=== PATIENT | female | born 1950 | race Caucasian/White ===

== ENCOUNTER → 2017-04-28 | Outpatient (CLI) | payer MEDICARE ==
--- NOTE | 2017-04-29 21:54 | BD ---
EXAMINATION TYPE: MG DEXA axial skeleton. DATE OF EXAM: 04/28/2017 COMPARISON: NONE CLINICAL HISTORY: Height: 61.5 IN Weight: 179 LBS FRAX RISK QUESTIONS: Alcohol (3 or more units per day): NO Family History (Parent hip fracture): NO Glucocorticoids (More than 3mos): NO (Ex: prednisone, prednisolone, methylprednisolone, dexamethasone, and hydrocortisone). History of Fracture in Adulthood: YES RT FOOT AGE 63 Secondary Osteoporosis: 1. Type 1 Diabetes: NO 2. Hyperthyroidism: NO 3. Menopause before 45: NO 4. Malnutrition: NO 5. Chronic liver disease: NO Rheumatoid Arthritis: NO Current Tobacco Use: NO RISK FACTORS HISTORY OF: Active: YES Diet low in dairy products/other sources of calcium: YES Postmenopausal woman: AGE 51 Take estrogen and/or progesterone medications: NOT NOW How long: TOOK PROGESTERONE FOR 6 MONTHS AT AGE 19 MEDICATIONS: Thyroid Medications: YES Which medication: Levothyroxine How Long: SINCE AGE 13 Additional Medications: VIT D, LEVOTHYROXINE, CHOLESTEROL MEDS, HIGH BLOOD PRESSURE MEDS, MOBIC, POTA SSIUM, MAGNESIUM, FISH OIL, EXAM MEASUREMENTS: Bone mineral densitometry was performed using the [employer] System. Bone mineral density as measured about the Lumbar spine is: ----- L1-L4(G/cm2): 1.356 T Score Values are as follows: ----- L2: 0.0 ----- L3: 2.9 ----- L4: 3.9 ----- L1-L4: 1.5 Bone mineral density BASELINE Bone mineral density about the R hip (g/cm2): 0.936 Bone mineral density about the L hip (g/cm2): 0.858 T Score values are as follows: -----R Neck: -0.7 -----L Neck: -1.3 -----R Total: -0.5 -----L Total: -1.2 Bone mineral density BASELINE IMPRESSION: Osteopenia (T Score between -2.5 and -1 as noted by T score values There is slightly increased risk of fracture and the patient may be considered for treatment. Re-Screen 2-5 years. NOTE: T-SCORE=SD OF THE YOUNG ADULT MEAN.
== END | disposition home or self-care (01) ==
LOC: RADBDWWP 13:14
PROVIDERS: ATTEND Family Medicine
DX: M85.80 Other specified disorders of bone density and structure, unspecified site (principal)
CPT/HCPCS: 77080

== ENCOUNTER 2018-05-30 12:54 | Inpatient (IN) | payer MEDICARE ==
[2018-05-30 14:13] LABS: Basophils % (A) 1 %; Eosinophils # (A) 0.1 k/uL (0-0.7); Eosinophils % (A) 2 %; HCT 46.4 % (34.0-46.0); HGB 15.2 gm/dL (11.4-16.0); Lymphocytes # (A) 1.5 k/uL (1.0-4.8); Lymphocytes % (A) 24 %; MCH 26.9 pg (25.0-35.0); MCHC 32.7 g/dL (31.0-37.0); MCV 82.2 fL (80.0-100.0); Mean Platelet Volume 7.4; Monocytes # (A) 0.3 k/uL (0-1.0); Monocytes % (A) 4 %; Neutrophils # (A) 4.3 k/uL (1.3-7.7); Neutrophils % (A) 68 %; Platelet Count 217 k/uL (150-450); RBC 5.65 m/uL (3.80-5.40); RDW 13.8 % (11.5-15.5); WBC 6.4 k/uL (3.8-10.6)
--- NOTE | 2018-05-30 14:17 | ED ---
Chest Pain HPI - General Chief Complaint: Chest Pain Stated Complaint: Abnormal EKG, Sent by Time Seen by Provider: 05/30/18 13:32 Source: patient, RN notes reviewed, old records reviewed Mode of arrival: ambulatory Limitations: no limitations - History of Present Illness Initial Comments: This is a 67-year-old female the ER for evaluation. Today she presents for evaluation regards to chest pain. Chest pain with no radiation. Strong family history. Patient admits to increased activity weekend. No prior history of SD , did recently have cardiac echo with no significant abnormality. Patient denies shortness of breath she also denies diaphoresis. But her pain is continuing to have high blood pressure high cholesterol MD Complaint: chest pain -: hour(s) Onset: during rest Pain Location: substernal, left chest Pain Radiation: none Severity: mild Severity scale (1-10): 3 Quality: aching Improves With: nothing Worsens With: nothing Anginal Symptoms: dyspnea Treatments Prior to Arrival: none - Related Data On Oral Contraceptives: No Home Medications Medication Instructions Recorded Confirmed Atorvastatin [Lipitor] 20 mg PO HS 08/01/14 05/30/18 Bisoprolol-Hctz 10-6.25 mg [Ziac 1 tab PO HS 08/01/14 05/30/18 10-6.25] Levothyroxine Sodium [Synthroid] 75 mcg PO HS 08/01/14 05/30/18 Esomeprazole Magnesium [NexIUM] 40 mg PO HS 05/30/18 05/30/18 HYDROcodone/APAP 10-325MG [[place] 0.5 tab PO DAILY PRN 05/30/18 05/30/18 10-325] Phenylephrine/Dm/Acetaminop/GG 30 ml PO Q12H PRN 05/30/18 05/30/18 [Vicks Dayquil Severe Cold-Flu] Allergies Allergy/AdvReac Type Severity Reaction Status Date / Time No Known Allergies Allergy Verified 05/30/18 15:12 Review of Systems ROS Statement: Those systems with pertinent positive or pertinent negative responses have been documented in the HPI. ROS Other: All systems not noted in ROS Statement are negative. EKG Findings - EKG Comments: EKG Findings:: EKG shows Sinus rhythm rate of 72, DE 152, QRS 84, QTc 475. Repeat. EKG shows normal sinus rhythm rate of 74, DE 154, QRS 86, QTc 475 Past Medical History Past Medical History: CVA/TIA, GERD/Reflux, Hyperlipidemia, Hypertension Additional Past Medical History / Comment(s): 2005 "STRESS STROKE", CHRONIC CONSTIPATION. History of Any Multi-Drug Resistant Organisms: None Reported Past Surgical History: Adenoidectomy, Appendectomy, Joint Replacement, Tonsillectomy, Tubal Ligation Additional Past Surgical History / Comment(s): T&A A CHILD, LEFT SALIVA GLAND REMOVED, TOTAL LEFT KNEE ACHILLIS TENDON Past Anesthesia/Blood Transfusion Reactions: No Reported Reaction Past Psychological History: No Psychological Hx Reported Smoking Status: Former smoker Past Alcohol Use History: Rare Past Drug Use History: None Reported - Past Family History Mother Family Medical History: No Reported History General Exam Limitations: no limitations General appearance: alert, in no apparent distress Head exam: Present: atraumatic, normocephalic, normal inspection Eye exam: Present: normal appearance, PERRL, EOMI. Absent: scleral icterus, conjunctival injection, periorbital swelling ENT exam: Present: normal exam, mucous membranes moist Neck exam: Present: normal inspection. Absent: tenderness, meningismus, lymphadenopathy Respiratory exam: Present: normal lung sounds bilaterally. Absent: respiratory distress, wheezes, rales, rhonchi, stridor Cardiovascular Exam: Present: regular rate, normal rhythm, normal heart sounds. Absent: systolic murmur, diastolic murmur, rubs, gallop, clicks GI/Abdominal exam: Present: soft, normal bowel sounds. Absent: distended, tenderness, guarding, rebound, rigid Extremities exam: Present: normal inspection, full ROM, normal capillary refill. Absent: tenderness, pedal edema, joint swelling, calf tenderness Back exam: Present: normal inspection Neurological exam: Present: alert, oriented X3, CN II-XII intact Psychiatric exam: Present: normal affect, normal mood Skin exam: Present: warm, dry, intact, normal color. Absent: rash Course Vital Signs 05/30/18 05/30/18 05/30/18 13:01 14:00 14:30 Temperature 98.4 F Pulse Rate 74 67 70 Respiratory 20 Rate Blood Pressure 159/89 171/108 166/87 O2 Sat by Pulse 98 Oximetry 05/30/18 15:00 Temperature Pulse Rate 84 Respiratory Rate Blood Pressure 154/86 O2 Sat by Pulse Oximetry - Reevaluation(s) Reevaluation #1: Spoke with rolled seat trimmer marble mason Dr. Holloway who is patient's primary rolled seat trimmer , will see patient in emergency room 05/30/18 15:40 Medical records reviewed no prior EKG on file 05/30/18 15:40 Reevaluation #2: 05/30/18 15:40 Patient does continue to have chest pain - Consultations Consultation #1: Spoke with Dr. Lazcano who accepts admission Chest Pain MDM - MDM 67 female the ER for evaluation with strong family history of heart disease high blood pressure high cholesterol, patient does have lateral T-wave depression as well as elevated troponin, patient started on heparin, given aspirin and beta jamel. We'll admit for cardiology evaluation Critical Care Time Critical Care Time: Yes Total Critical Care Time: 31 Disposition Clinical Impression: Chest pain, NSTEMI (non-ST elevated myocardial infarction) Disposition: ADMITTED IP TO THIS HOSP Condition: Serious Is patient prescribed a controlled substance at d/c from ED?: No Referrals: Rosendo Forrest MD [Primary Care Provider] - 1-2 days
--- NOTE | 2018-05-30 14:30 | XR ---
EXAMINATION TYPE: XR chest 2V DATE OF EXAM: 05/30/2018 COMPARISON: NONE TECHNIQUE: PA and lateral views submitted. HISTORY: Chest pain FINDINGS: The lungs are clear and there is no pneumothorax, pleural effusion, or focal pneumonia. Diffuse ost eopenia is seen. There is arthropathy of the shoulders. No overt failure. Hypertrophic and degenerati ve change of the spine. IMPRESSION: 1. No acute process.
[2018-05-30 14:32] LABS: ALT 29 U/L (9-52); AST 33 U/L (14-36); Albumin 4.6 g/dL (3.5-5.0); Alkaline Phosphatase 185 U/L (38-126); Anion Gap 11 mmol/L; Blood Urea Nitrogen 14 mg/dL (7-17); Calcium 9.7 mg/dL (8.4-10.2); Carbon Dioxide 28 mmol/L (22-30); Chloride 105 mmol/L (98-107); Glucose 126 mg/dL (74-99); Lipase 99 U/L (23-300); Magnesium 2.1 mg/dL (1.6-2.3); Potassium 3.4 mmol/L (3.5-5.1); Sodium 144 mmol/L (137-145); Total Bilirubin 0.4 mg/dL (0.2-1.3); Total Protein 7.7 g/dL (6.3-8.2)
[2018-05-30 14:38] LABS: INR 0.9 (<1.2); Partial Thromboplastin Time 24.1 sec (22.0-30.0); Prothrombin Time 9.6 sec (9.0-12.0)
[2018-05-30] MEDS ORDERED: HEPARIN SODIUM,PORCINE 5,000 UNIT/ML 1 ML VIAL IV ONE (15:35)
[2018-05-30] MEDS ORDERED: HEPARIN SODIUM,PORCINE 5,000 UNIT/ML 1 ML VIAL IV PRN (15:35)
[2018-05-30] MEDS ORDERED: NITROGLYCERIN SL TABS 0.4 MG TAB SUBLINGUAL PRN ×2 (15:35→18:34)
[2018-05-30] MEDS ORDERED: ATORVASTATIN 80 MG TAB PO STA (15:36)
[2018-05-30] MEDS ORDERED: HEPARIN SOD,PORK IN 0.45% NACL 25,000 UNIT in 0.45% NACL 1 250ML.BAG IV SCH (15:45)
[2018-05-30] MEDS ORDERED: ASPIRIN 81 MG PO STA (15:55)
[2018-05-30] MEDS: SODIUM CHLORIDE 0.9% 1,000 ML IV SCH (15:58)
[2018-05-30] MEDS ORDERED: IV FLUID CONTINUATION 900 ML IV ONE (16:30)
[2018-05-30] MEDS ORDERED: LIDOCAINE 1% INJ 10MG/ML (20 ML MDV) ONE (16:34)
[2018-05-30] MEDS ORDERED: fentaNYL (PF) 50 MCG/ML 2 ML AMP ONE (16:38)
[2018-05-30] MEDS ORDERED: fentaNYL (PF) 50 MCG/ML 2 ML AMP IVP ONE (16:43)
[2018-05-30] MEDS: MIDAZOLAM 2 MG/2 ML VIAL IVP ONE ×2 (16:43→16:51)
[2018-05-30] MEDS ORDERED: LIDOCAINE 1% INJ 10MG/ML (20 ML MDV) SQ ONE (16:49)
[2018-05-30] MEDS ORDERED: TICAGRELOR 90 MG TAB ONE (17:53)
[2018-05-30] MEDS ORDERED: TICAGRELOR 90 MG TAB PO ONE (17:55)
[2018-05-30] MEDS ORDERED: BIVALIRUDIN BOLUS 250 MG/50 ML IV ONE (17:57)
[2018-05-30] MEDS ORDERED: MIDAZOLAM 2 MG/2 ML VIAL IVP ONE (18:00)
[2018-05-30] MEDS ORDERED: BIVALIRUDIN 250 MG in SODIUM CHLORIDE 0.9% 50 ML IV ONE (18:00)
[2018-05-30] MEDS ORDERED: ALPRAZolam 0.25 MG TAB PO PRN (18:06)
[2018-05-30] MEDS ORDERED: ACETAMINOPHEN TAB 500 MG TAB PO PRN (18:06)
[2018-05-30] MEDS ORDERED: NITROGLYCERIN 1000MCG/10ML SYRINGE INTRACORON ONE (18:06)
[2018-05-30] MEDS ORDERED: Potassium Replacement Protocol 1 EACH MISC MISCELLANE PRN (18:08)
[2018-05-30] MEDS ORDERED: IOPAMIDOL-370 150ML BTL INJ ONE (18:08)
[2018-05-30] MEDS ORDERED: IOPAMIDOL-370 100ML BTL INJ ONE (18:23)
[2018-05-30] MEDS ORDERED: MAG HYDROX/AL HYDROX/SIMETH 30 ML CUP PO PRN (18:34)
[2018-05-30] MEDS ORDERED: RX INFO: IV CONTRAST WAS GIVEN 1 EACH MISC MISCELLANE PRN (18:34)
[2018-05-30] MEDS ORDERED: ZOLPIDEM 5 MG TAB PO PRN (18:34)
[2018-05-30] MEDS ORDERED: ATROPINE SULFATE 0.1 MG/ML 10ML SYRINGE IV PRN (18:34)
[2018-05-30] MEDS ORDERED: SODIUM CHLORIDE 0.9% 1,000 ML IV SCH (18:45)
--- NOTE | 2018-05-30 20:39 | CONS ---
CONSULTATION Mrs. Muhammad is a 67-year-old female who is seen for cardiac evaluation. This patient was eating breakfast and she started feeling some discomfort in the chest. She felt like she had probably jogged a few miles and she was short of breath. She did not had any nausea, vomiting or sweating. The patient continued to have this kind of discomfort on and off and so she came to the emergency room. Initial EKG showed normal sinus rhythm with minimal ST-T changes. The 2nd EKG showed more ST-segment depression in V5, V6 and 1 and aVL. Patient has evidence of left ventricular hypertrophy. The patient's initial troponin is 0.162. In view of the EKG changes and continued symptoms as well as the elevated troponin, patient is recommended to have a cardiac catheterization for definitive diagnosis. The patient has a history of hypertension, hyperlipidemia, possible TIA in the past. Patient also has a strong family history of coronary artery disease. PAST MEDICAL HISTORY: Includes history of a history of hypertension, hyperlipidemia and TIA. PAST SURGICAL HISTORY: Surgical history includes history of appendicectomy. REVIEW OF THE SYSTEM: Otherwise unremarkable. SOCIAL HISTORY: Patient is a former smoker. PHYSICAL EXAMINATION: At present reveals a 67-year-old female who at present is not in any acute distress. Blood pressure is 130/80 mmHg. Head and ENT examination is negative. Neck is supple. There is no increase in jugular venous pressure. Both the carotid pulses are felt. There is no bruit. Chest is symmetrical. Heart the PMI is not felt. First and second heart sounds are normal. There is no evidence of any murmur. Lungs are clinically clear to auscultation and percussion. Abdomen is negative. Extremities: Peripheral pulses are 2+. EKG shows evidence of mild ST-segment depression suggestive of ischemia versus left ventricular hypertrophy and strain pattern. Patient's initial troponin is 0.162. The patient's creatinine is normal. FINAL IMPRESSION: This patient's history is suggestive of non ST-segment elevation myocardial infarction. The patient has multiple risk factors including hypertension, hyperlipidemia, and strong family history. The patient is advised further evaluation with a cardiac catheterization for definitive diagnosis. MMODL / IJN: [id number] /
[2018-05-30] MEDS: BISOPROLOL-HCTZ 10-6.25 MG 1 EACH TAB PO SCH (20:57)
[2018-05-30] MEDS: LEVOTHYROXINE 75 MCG TAB PO SCH (20:57)
[2018-05-30] MEDS: ATORVASTATIN 80 MG TAB PO SCH (20:57)
[2018-05-30] MEDS ORDERED: METOPROLOL TARTRATE 25 MG TAB PO SCH (21:00)
[2018-05-30] MEDS ORDERED: NON-FORMULARY DRUG (Esomeprazole Magnesium [Nexium] 40 MG) PO SCH (21:00)
--- NOTE | 2018-05-30 23:13 | CC ---
CARDIAC CATHETERIZATION REPORT Mrs. Muhammad is a 67-year-old female who came to the emergency room with chest pain. Patient history was suggestive of a non ST-segment elevation myocardial infarction. In view of that, the patient was recommended to have a cardiac catheterization. Patient has a history of hypertension, hyperlipidemia. PROCEDURE: The right groin was prepped and draped in the usual manner and the skin was infiltrated with 2% Xylocaine. Using Seldinger technique and a micropuncture needle. Selective coronary angiography was then performed in multiple projections and the left ventricular pressures were obtained. Patient tolerated the procedure well. SEDATION: Moderate sedation was used. Total sedation time was 21 minutes. HEMODYNAMICS: Left ventricular end-diastolic pressure is 12 mmHg prior to angiography. No gradient is noted across the aortic valve. SELECTIVE CORONARY ANGIOGRAPHY: Left main coronary artery is normal and patent. LAD is a good caliber blood vessel and the mid LAD after the origin of the diagonal branch has about 60% to 70% stenosis. The distal LAD has another area of long area of stenosis of about 60%. Circumflex coronary artery is a good caliber blood vessel and gives rise to good-sized obtuse marginal branch. The obtuse marginal branch has a 90% stenosis. The right coronary artery is totally occluded and there are good collaterals from the left coronary system. Distal right coronary fills collaterals from the left coronary system. FINAL IMPRESSION: This study reveals a significant triple-vessel disease. We will review the film with Dr. Sun and consider stent to the circumflex and possible FFR and and/or stent to the LAD. MMODL / IJN: [id number] /
[2018-05-31] MEDS: TEMAZEPAM 15 MG CAP PO PRN ×2 (00:51→23:38)
[2018-05-31] MEDS ORDERED: Potassium Replacement Protocol 1 EACH MISC MISCELLANE PRN (05:14)
--- NOTE | 2018-05-31 05:24 | PTCA ---
PERCUTANEOUSTRANS CORORONARY ANGIOGRAPHY Mrs. Muhammad is a 67-year-old female with no prior documented history of coronary artery disease who presented with symptoms of chest pain and evidence of non ST-segment elevation myocardial infarction, underwent cardiac catheterization by Dr. Kay Thompson and was found to have subtotally occluded a first obtuse marginal branch. In view of that, recommendation regarding angioplasty and stenting. The procedure as well as the risks and the complications were discussed with the patient who is in full understanding and agreement. PROCEDURE: A 6-Arabic FL4 guiding catheter was introduced into the system. After cannulating the left main, a 0.014 balanced medium weight J-wire was advanced across the lesion, positioned distally. Following that, a 2.25 x 12 mm Trek balloon was advanced and one inflation at 8 atmospheres was done following that the balloon was removed and attempt to advance a 2.5 x 15 mm Xience Zoya stent were unsuccessful. That stent was removed and another 0.014 balanced medium weight J-wire was advanced next to the first one in a tameka fashion and the stent was advanced, deployed and post dilated at 16 atmospheres. After the last inflation, after appropriate wait, the balloon and the guidewire were withdrawn back in the guiding catheter. Images were obtained, repeated. Those images reveal stable successful stenting. At that point, the guiding catheter, the balloon and the guidewire were removed. The sheath was removed. Hemostasis was obtained with deployment of Angio-Seal. There was no immediate complication. Patient was returned to her room in stable condition. Of note, the patient received Angiomax per protocol as well as oral loading dose of Brilinta. She had chest discomfort with the inflation that resolved at the end of the procedure. RESULT: Successful stenting of the first obtuse marginal branch with reduction of stenosis from 99% to 0% in a calcified segment. RECOMMENDATION: Patient will be continued on aspirin, Brilinta, and statin. She will be evaluated down the road regarding the need to undergo revascularization of her LAD territory. The finding as well as recommendation were discussed with the patient and she was in full understanding and agreement. MMODL / MILDREDN: [id number] /
[2018-05-31] MEDS: POTASSIUM CHLORIDE ER 20 MEQ TAB.ER PO SCH ×2 (05:35→06:53)
--- NOTE | 2018-05-31 06:16 | HP ---
HISTORY AND PHYSICAL CHIEF COMPLAINT: Chest pain. HISTORY OF PRESENT ILLNESS: This 67-year-old woman with a past medical history of CVA, TIA, GERD, hypertension, hyperlipidemia, history of myocardial infarction, history of stress stroke being followed by Dr. Forrest in the outpatient setting was complaining of chest pain to [facility]. The patient apparently had chest fluttering and the EKG showed some diffuse ST-T changes. Troponins were found to be 0.162 and 14.300 indicating acute etb-EW-wczvxfduw myocardial infarction. Patient underwent a cardiac catheterization and stenting by Cardiology. There is no history of fever. No history of headache, loss of consciousness or seizures. The patient had chest pain, which was the anterior part and left side of the chest without radiation associated symptoms. PAST MEDICAL HISTORY: History of CVA, TIA, GERD, hypertension, hyperlipidemia, myocardial infarction. MEDICATIONS: Medications prior to admission include: 1. Vicks DayQuil 30 mL b.i.d. p.r.n. 2. Synthroid 75 mcg p.o. q.h.s. 3. [place] _daily p.r.n. 4. Nexium 40 mg q.h.s. 5. Ziac one tablet p.o. q.h.s. 6. Lipitor 20 mg q.h.s. ALLERGIES: Allergies are none. FAMILY HISTORY: There is no history of heart disease or strokes in the family. SOCIAL HISTORY: Previous history of smoking. Occasional alcohol intake. REVIEW OF SYSTEMS: ENT: No diminished hearing or diminished vision. CARDIOVASCULAR SYSTEM: As mentioned earlier. RESPIRATORY SYSTEM: As mentioned earlier. GI: No nausea. : No dysuria. NERVOUS SYSTEM: No numbness or weakness. ALLERGY/IMMUNOLOGY: No history of asthma MUSCULOSKELETAL: As mentioned earlier. HEMATOLOGY/ONCOLOGY: No history of anemia. ENDOCRINE: No history of diabetes . CONSTITUTIONAL: As mentioned earlier. DERMATOLOGY: Negative. RHEUMATOLOGY: Negative. PSYCHIATRY: As mentioned earlier. PHYSICAL EXAMINATION: Patient is alert and oriented x3. Pulse 88, blood pressure 148/85, respirations 16, temp is normal, pulse ox 96% on room air. HEENT: Conjunctivae normal. NECK: No jugular venous distention. CARDIOVASCULAR: S1, S2 muffled. RESPIRATORY: Breath sounds diminished at the bases. No rhonchi, no crackles. ABDOMEN: Soft, nontender. No mass palpable. LEGS: No edema. No swelling. NERVOUS SYSTEM: Higher functions as mentioned. Moves all 4 limbs. No focal deficits. LYMPHATICS: No lymphadenopathy of the neck, axillae or groin. SKIN: No ulcer, rash or bleeding. JOINTS: No active deforming arthropathy. LABS: WBC 6.4, hemoglobin 15.2. Sodium n, potassium 3.4. Troponin 0.162 and 14.300. ASSESSMENT: 1. Acute maf-MK-iotgylflq myocardial infarction, status post cardiac catheterization and stenting. 2. Troponin of 14.300. 3. Mild hypokalemia. 4. History of cerebrovascular accident. 5. History of gastroesophageal reflux disease. 6. Hypertension. 7. Hyperlipidemia. 8. History of chronic constipation. 9. History of degenerative joint disease. 10.Remote history of nicotine dependence. RECOMMENDATIONS AND DISCUSSION: This is a 67-year-old woman who presented with multiple complex medical issues, we will monitor the patient closely. Continue the current medication, continue symptomatic treatment. Continue with dual antiplatelet agents. Otherwise I would recommend resume the home medication. Closely follow with Cardiology. Prognosis guarded because of multiple complex medical issues. Further recommendations to follow. See orders for details. The full cath report is pending at this time. MMODL / IJN: [id number] / GREG
[2018-05-31] MEDS: PANTOPRAZOLE 40 MG TABLET PO SCH (06:53)
[2018-05-31 08:14] LABS: Basophils # (A) 0.1 k/uL (0-0.2); Basophils % (A) 1 %; Eosinophils # (A) 0.3 k/uL (0-0.7); Eosinophils % (A) 4 %; HCT 44.8 % (34.0-46.0); HGB 14.6 gm/dL (11.4-16.0); Lymphocytes # (A) 2.4 k/uL (1.0-4.8); Lymphocytes % (A) 27 %; MCH 27.2 pg (25.0-35.0); MCHC 32.5 g/dL (31.0-37.0); MCV 83.7 fL (80.0-100.0); Mean Platelet Volume 7.4; Monocytes # (A) 0.6 k/uL (0-1.0); Monocytes % (A) 6 %; Neutrophils # (A) 5.4 k/uL (1.3-7.7); Neutrophils % (A) 60 %; Platelet Count 183 k/uL (150-450); RBC 5.36 m/uL (3.80-5.40); WBC 8.9 k/uL (3.8-10.6)
[2018-05-31 08:24] LABS: Anion Gap 10 mmol/L; Blood Urea Nitrogen 8 mg/dL (7-17); Calcium 9.7 mg/dL (8.4-10.2); Carbon Dioxide 25 mmol/L (22-30); Chloride 107 mmol/L (98-107); Cholesterol 181 mg/dL (<200); Glucose 96 mg/dL (74-99); HDL Cholesterol 44 mg/dL (40-60); LDL Cholesterol,Calculated 103 mg/dL (0-99); Potassium 3.8 mmol/L (3.5-5.1); Sodium 142 mmol/L (137-145); Triglycerides 171 mg/dL (<150)
[2018-05-31] MEDS ORDERED: ASPIRIN 325 MG TAB PO SCH (09:00)
[2018-05-31] MEDS: ASPIRIN 81 MG PO SCH (09:15)
[2018-05-31] MEDS: TICAGRELOR 90 MG TAB PO SCH ×2 (09:16→21:34)
--- NOTE | 2018-05-31 11:39 | ECHOF ---
Referral Reason:ElevTrop MEASUREMENTS -------- HEIGHT: 160.0 cm WEIGHT: 80.3 kg BP: RVIDd: 2.7 cm (< 3.3) IVSd: 1.1 cm (0.6 - 1.1) LVIDd: 3.5 cm (3.9 - 5.3) LVPWd: 1.1 cm (0.6 - 1.1) IVSs: 1.6 cm LVIDs: 1.8 cm LVPWs: 1.8 cm Ao Diam: 2.3 cm (2.0 - 3.7) AV Cusp: 1.2 cm (1.5 - 2.6) LA Diam: 3.2 cm (2.7 - 3.8) EPSS: 0.7 cm MV E Colt: 0.93 m/s MV DecT: 200 ms MV A Colt: 1.08 m/s MV E/A Ratio: 0.86 RAP: 5.00 mmHg RVSP: 29.06 mmHg MV EF SLOPE: 69.16 mm/s (70 - 150) MV EXCURSION: 1.53 cm (> 18.000) FINDINGS -------- Sinus rhythm. This was a technically difficult study with suboptimal views. The left ventricular size is normal. Left ventricular wall thickness is normal. Overall left vent ricular systolic function is low-normal with, an EF between 50 - 55 %. Mid lateral LV wall motion i s hypokinetic. The right ventricle is normal in size and function. Normal LA size by volume 22+/-6 ml/m2. The right atrium is normal in size. XX ml of Lumason was utilized for enhancement of images. The aortic valve is trileaflet and appears structurally normal. There is trace mitral regurgitation. Trace tricuspid regurgitation present. The right ventricular systolic pressure, as measured by Dopp ler, is 29.06mmHg. Pulmonic valve appears structurally normal. The aortic root size is normal. CONCLUSIONS -------- 1. Sinus rhythm. 2. This was a technically difficult study with suboptimal views. 3. The left ventricular size is normal. 4. Left ventricular wall thickness is normal. 5. Overall left ventricular systolic function is low-normal with, an EF between 50 - 55 %. 6. Mid lateral LV wall motion is hypokinetic. 7. The right ventricle is normal in size and function. 8. Normal LA size by volume 22+/-6 ml/m2. 9. The right atrium is normal in size. 10. XX ml of Lumason was utilized for enhancement of images. 11. The aortic valve is trileaflet and appears structurally normal. 12. There is trace mitral regurgitation. 13. Trace tricuspid regurgitation present. 14. The right ventricular systolic pressure, as measured by Doppler, is 29.06mmHg. 15. Pulmonic valve appears structurally normal. 16. The aortic root size is normal. SQUIRREL MAN: Aruna Flores RDCS
[2018-05-31 12:01] VITALS: BMI 31.8
[2018-05-31] MEDS ORDERED: ALPRAZolam 0.25 MG TAB PO PRN (12:47)
[2018-05-31] MEDS ORDERED: ALPRAZolam 0.5 MG TAB PO PRN (12:47)
[2018-05-31] MEDS ORDERED: NITROGLYCERIN SL TABS 0.4 MG TAB SUBLINGUAL PRN (12:47)
[2018-05-31] MEDS ORDERED: SODIUM CHLORIDE 0.9% 1,000 ML in EMPTY BAG 1 BAG IV ONE (12:47)
--- NOTE | 2018-05-31 14:08 | P.PN ---
Subjective Progress Note Date: 05/31/18 This is a pleasant 67-year-old female who was seen in consultation yesterday by Dr. VC Thompson. She presented to the emergency room with symptoms of feeling her heart racing fast with associated shortness of breath. The initial EKG performed in the emergency room showed a normal sinus rhythm with minimal ST-T wave changes, subsequent EKG showed more ST depression in V5 61 and aVL, patient had evidence also left ventricular hypertrophy. The initial troponin in the emergency room came back to be 0.162. In view of the EKG changes, continued symptoms, abnormal troponin the patient was advised to undergo cardiac catheterization. Cardiac catheterization revealed significant triple-vessel coronary artery disease, with the LAD having an area of long stenosis of about 60%, diagonal branch 60-70%, circumflex gave rise to a good size obtuse marginal branch which had a 90% stenosis, the right coronary artery was totally occluded and there are good collaterals from the left system. Subsequent to that patient did undergo angioplasty with stenting of the obtuse marginal branch. Patient was seen and examined this morning, feels well, denies any chest pain or difficulty in breathing. She's been up ambulating without any difficulty in breathing. Echocardiogram with Doppler study was performed which revealed an ejection fraction of 50-55%. Blood pressure 130/70 with a heart rate in the 70s. White blood cell count 8.9, hemoglobin 14.6, platelet count 183. Sodium 142, potassium 3.8, BUN [address] Sun did come in to see the patient today discussed with her regarding proceeding tomorrow with an FFR of the LAD. If the FFR comes back to be significant patient will undergo stenting of the LAD. Objective - Vital Signs Vital signs: Vital Signs Temp 97.1 F L 05/31/18 11:49 Pulse 70 05/31/18 11:49 Resp 16 05/31/18 11:49 BP 130/70 05/31/18 11:49 Pulse Ox 97 05/31/18 11:49 Intake & Output 05/30/18 05/31/18 05/31/18 18:59 06:59 18:59 Intake Total 516 1000 120 Balance 516 1000 120 Weight 80.694 kg 81.73 kg 81.73 kg Intake: IV 396 1000 Sodium Chloride 0.9% 1, 1000 000 ml @ 100 mls/hr IV . Q10H RUBIA Rx#:[id number] Oral 120 120 Other: Voiding Method Toilet # Voids 2 - Exam PHYSICAL EXAMINATION: GENERAL: 67-year-old female in no acute distress at the time of my examination HEENT: Head is atraumatic, normocephalic. Pupils equal, round. Sclera anicteric. Conjunctiva are clear. Mucous membranes of the mouth are moist. Neck is supple. There is no elevated jugular venous pressure. No carotid bruit is heard. HEART EXAMINATION: Heart S1, S2 normal. No murmur or gallop heard. CHEST EXAMINATION: Lungs are clear to auscultation and precussion. No chest wall tenderness is noted on palpation or with deep breathing. ABDOMEN: Soft, nontender. Bowel sounds are heard. No organomegaly noted. EXTREMITIES: 2+ peripheral pulses with no evidence of peripheral edema and no calf tenderness noted. Right groin soft, no evidence of any hematoma. NEUROLOGIC patient is awake, alert and oriented 3 . . - Labs CBC & Chem 7: 05/31/18 07:54 05/31/18 07:54 Labs: Abnormal Lab Results - Last 24 Hours (Table) 05/30/18 05/30/18 05/30/18 Range/Units 13:54 13:54 13:54 RBC 5.65 H (3.80-5.40) m/uL Hct 46.4 H (34.0-46.0) % Potassium 3.4 L (3.5-5.1) mmol/L Glucose 126 H (74-99) mg/dL Alkaline Phosphatase 185 H (38-126) U/L Troponin I 0.162 H* (0.000-0.034) ng/mL Triglycerides (<150) mg/dL LDL Cholesterol, Calc (0-99) mg/dL 05/30/18 05/31/18 Range/Units 19:35 07:54 RBC (3.80-5.40) m/uL Hct (34.0-46.0) % Potassium (3.5-5.1) mmol/L Glucose (74-99) mg/dL Alkaline Phosphatase (38-126) U/L Troponin I 14.300 H* (0.000-0.034) ng/mL Triglycerides 171 H (<150) mg/dL LDL Cholesterol, Calc 103 H (0-99) mg/dL Assessment and Plan Plan: Assessment and plan #1 non-STEMI status post angioplasty and stenting of the obtuse marginal branch. Patient was also found to have a totally occluded RCA with collaterals from the left system, 60-70% stenosis in the LAD. #2 hyperlipidemia #3 hypertension #4 hypothyroidism Plan Patient will be scheduled tomorrow to undergo FFR of the left anterior descending artery. If it comes back to be significant she will then receive a stent in that vessel. This has been explained to the patient in detail, this will be performed tomorrow by Dr. Sun. DNP note has been reviewed, I agree with a documented findings and plan of care. Patient was seen and examined.
[2018-05-31 16:15] LABS: Appearance,Urine Clear (Clear); Bilirubin,Urine Negative (Negative); Blood,Urine Negative (Negative); Color,Urine Light Yellow; Glucose,Urine (UA) Negative (Negative); Ketones,Urine Negative (Negative); Leukocyte Esterase,Urine Negative (Negative); Nitrite,Urine Negative (Negative); PH, Urine 6.5 (5.0-8.0); Protein,Urine Negative (Negative); Specific Gravity,Urine 1.006 (1.001-1.035); Urobilinogen,Urine <2.0 mg/dL (<2.0)
--- NOTE | 2018-05-31 16:36 | P.PN ---
Subjective 67-year-old pleasant female was admitted secondary to non-ST elevation myocardial infarction patient underwent stenting of obtuse marginal branch patient has totally occluded RCA with collaterals and 60-70% stenosis of LAD for which patient will undergo FFR tomorrow. Patient is chest pain-free at this time. Constitutional: Denied any fatigue denied any fever. Cardio vascular: denied any chest pain, palpitations Gastrointestinal denied any nausea vomiting Pulmonary: Denied any shortness of breath cough Neurologic denied any new focal deficits All inpatient medications were reviewed and appropriate changes in these medications as dictated in the interval history and assessment and plan. Objective - Vital Signs Vital signs: Vital Signs Temp 97 F L 05/31/18 16:00 Pulse 70 05/31/18 16:00 Resp 16 05/31/18 16:00 BP 130/62 05/31/18 16:00 Pulse Ox 99 05/31/18 16:00 Intake & Output 05/30/18 05/31/18 05/31/18 18:59 06:59 18:59 Intake Total 516 1000 600 Balance 516 1000 600 Weight 80.694 kg 81.73 kg 81.73 kg Intake: IV 396 1000 Sodium Chloride 0.9% 1, 1000 000 ml @ 100 mls/hr IV . Q10H RUBIA Rx#:[id number] Oral 120 600 Other: Voiding Method Toilet # Voids 2 3 - Exam PHYSICAL EXAMINATION: GENERAL: The patient is alert and oriented x3, not in any acute distress. Well developed, well nourished. HEENT: Pupils are round and equally reacting to light. EOMI. No scleral icterus. No conjunctival pallor. Normocephalic, atraumatic. No pharyngeal erythema. No thyromegaly. CARDIOVASCULAR: S1 and S2 present. No murmurs, rubs, or gallops. PULMONARY: Chest is clear to auscultation, no wheezing or crackles. ABDOMEN: Soft, nontender, nondistended, normoactive bowel sounds. No palpable organomegaly. MUSCULOSKELETAL: No joint swelling or deformity. EXTREMITIES: No cyanosis, clubbing, or pedal edema. NEUROLOGICAL: Gross neurological examination did not reveal any focal deficits. SKIN: No rashes. - Labs CBC & Chem 7: 05/31/18 07:54 05/31/18 07:54 Labs: Abnormal Lab Results - Last 24 Hours (Table) 05/30/18 05/31/18 Range/Units 19:35 07:54 Troponin I 14.300 H* (0.000-0.034) ng/mL Triglycerides 171 H (<150) mg/dL LDL Cholesterol, Calc 103 H (0-99) mg/dL Assessment and Plan Plan: -Acute non-ST elevation microinfarction status post angioplasty as mentioned above, FFR tomorrow -Hypothyroidism -Hypertension -Hyperlipidemia Plan is to continue with present medications cardiac catheterization and FFR tomorrow depending on the FFR results patient management at undergo stenting of LAD
[2018-05-31] MEDS ORDERED: ATORVASTATIN 20 MG TAB PO SCH (21:00)
[2018-05-31] MEDS: SODIUM CHLORIDE 0.9% 1,000 ML IV SCH (21:16)
[2018-05-31] MEDS: LEVOTHYROXINE 75 MCG TAB PO SCH (21:34)
[2018-05-31] MEDS: BISOPROLOL-HCTZ 10-6.25 MG 1 EACH TAB PO SCH (21:34)
[2018-05-31] MEDS: ATORVASTATIN 80 MG TAB PO SCH (21:34)
[2018-06-01] MEDS: PANTOPRAZOLE 40 MG TABLET PO SCH (05:44)
[2018-06-01] MEDS ORDERED: ASPIRIN 325 MG TAB PO ONE (06:00)
[2018-06-01] MEDS ORDERED: SODIUM CHLORIDE 0.9% 1,000 ML in EMPTY BAG 1 BAG IV ONE (06:00)
[2018-06-01] MEDS ORDERED: ATORVASTATIN 80 MG TAB PO ONE (06:00)
[2018-06-01 06:01] LABS: Glucose,Whole Blood 91 mg/dL (75-99)
[2018-06-01 06:42] LABS: Mean Platelet Volume 6.6; Platelet Count 212 k/uL (150-450)
[2018-06-01] MEDS: TICAGRELOR 90 MG TAB PO SCH ×2 (10:14→20:35)
[2018-06-01] MEDS: ASPIRIN 81 MG PO SCH (10:14)
[2018-06-01] MEDS ORDERED: VERAPAMIL 2.5 MG/ML 2 ML AMP ONE (12:44)
[2018-06-01] MEDS ORDERED: fentaNYL (PF) 50 MCG/ML 2 ML AMP ONE (12:44)
[2018-06-01] MEDS ORDERED: LIDOCAINE 1% INJ 10MG/ML (20 ML MDV) ONE ×3 (12:44→13:42)
[2018-06-01] MEDS ORDERED: IV FLUID CONTINUATION 1,000 ML IV ONE (13:00)
[2018-06-01] MEDS ORDERED: BIVALIRUDIN 250 MG VIAL IV ONE (13:00)
[2018-06-01] MEDS ORDERED: SODIUM CHLORIDE 0.9% 50 ML BAG ONE (13:00)
[2018-06-01] MEDS ORDERED: fentaNYL (PF) 50 MCG/ML 2 ML AMP IV ONE (13:23)
[2018-06-01] MEDS ORDERED: LIDOCAINE 1% INJ 10MG/ML (20 ML MDV) SQ ONE (13:24)
[2018-06-01] MEDS: MIDAZOLAM 2 MG/2 ML VIAL IV ONE ×2 (13:26→13:30)
[2018-06-01] MEDS: VERAPAMIL SYRINGE (5 MG/10 ML) INTRAARTER ONE ×2 (13:27→13:30)
[2018-06-01] MEDS: LIDOCAINE 1% INJ 10MG/ML (20 ML MDV) SQ ONE ×2 (13:37→13:43)
[2018-06-01] MEDS ORDERED: HEPARIN SODIUM 1,000 UN/ML (10ML VL) ONE (13:42)
[2018-06-01] MEDS ORDERED: NITROGLYCERIN 1000MCG/10ML SYRINGE INTRACORON ONE (13:46)
[2018-06-01] MEDS ORDERED: ADENOSINE 90 MG in SODIUM CHLORIDE 0.9% 60 ML IVP ONE (13:52)
[2018-06-01] MEDS ORDERED: IOPAMIDOL-370 150ML BTL INJ ONE (13:53)
[2018-06-01] MEDS ORDERED: RX INFO: IV CONTRAST WAS GIVEN 1 EACH MISC MISCELLANE PRN (14:16)
[2018-06-01] MEDS ORDERED: MORPHINE SULFATE 4 MG/ML SYRINGE ONE (14:20)
[2018-06-01] MEDS ORDERED: MORPHINE SULFATE 4MG/4ML SYRG IV ONE (14:22)
--- NOTE | 2018-06-01 14:27 | CE ---
CARDIAC ELECTROPHYSIOLOGY REPORT FRACTIONAL FLOW RESERVE MEASUREMENT: Ms. Muhammad is a 67-year-old female who presented recently with non STEMI and was found to have subtotally occluded obtuse marginal branch, underwent stenting of that vessel. At that time, she was found to have severe calcification of the LAD, was borderline significant lesion in the mid LAD. In view of that, recommendation made regarding fractional flow reserve measurement and subsequent angioplasty and stenting if needed. The procedures, risks and complications were discussed with the patient who is in full understanding and agreement. PROCEDURE: Patient was brought to photofinishing laboratory worker in a fasting semi-sedated state after receiving fentanyl and Benadryl and achieving moderate conscious state. Using Xylocaine anesthesia and the Seldinger technique, a 6-Yi sheath was introduced in the right radial artery. The wire was advanced to the ascending aorta, but there was inability to advance a 6-Yi FL 3.5 guiding catheter and there was evidence of extravasation in the arm. At that point, the guiding catheter and the wire were removed and using Xylocaine anesthesia and Seldinger technique, a 6-Yi sheath was introduced in the left femoral artery. Selective left coronary angiography was performed. A 6-Yi FR4 guiding catheter. After cannulating the left main and obtaining images. A [place] Doppler flow wire was advanced and positioned distal LAD. Following, IFR was measured and following an infusion of adenosine per protocol, an FFR was measured. Following the, catheter and sheaths were removed. Hemostasis was obtained with compression of the left arm and placement of a TR band on the right radial artery. Patient received 5000 units of intravenous heparin. There was no immediate complication. FINDING: Non-hemodynamically significant lesion in the mid LAD with a fractional flow reserve of 86% and IFR of 94%. RECOMMENDATION: Patient will be continued on her present medical regimen with dual antiplatelet treatment in view of her recent stenting. Those findings and recommendation were discussed with the patient her family who are in full understanding and agreement. Duration of procedure is 34 minutes. MMODL / IJN: [id number] /
[2018-06-01] MEDS ORDERED: SODIUM CHLORIDE 0.9% 1,000 ML IV SCH (14:30)
[2018-06-01] MEDS ORDERED: ONDANSETRON 4 MG/2 ML VIAL ONE (14:41)
[2018-06-01] MEDS: SODIUM CHLORIDE 0.9% 1,000 ML IV SCH ×4 (14:45→21:15)
--- NOTE | 2018-06-01 16:09 | P.PN ---
Subjective 67-year-old pleasant female was admitted secondary to non-ST elevation myocardial infarction patient underwent stenting of obtuse marginal branch patient has totally occluded RCA with collaterals and 60-70% stenosis of LAD for which patient will undergo FFR tomorrow. Patient is chest pain-free at this time. 10/29/2018 No overnight events patient denied any chest pain patient in for cardiac catheterization today Constitutional: Denied any fatigue denied any fever. Cardio vascular: denied any chest pain, palpitations Gastrointestinal denied any nausea vomiting Pulmonary: Denied any shortness of breath cough Neurologic denied any new focal deficits All inpatient medications were reviewed and appropriate changes in these medications as dictated in the interval history and assessment and plan. Objective - Vital Signs Vital signs: Vital Signs Temp 97.9 F 06/01/18 15:35 Pulse 75 06/01/18 15:50 Resp 20 06/01/18 15:50 BP 91/54 06/01/18 15:50 Pulse Ox 97 06/01/18 15:20 Intake & Output 05/31/18 06/01/18 06/01/18 18:59 06:59 18:59 Intake Total 1044 665 123 Balance 1044 665 123 Weight 81.73 kg 80.1 kg Intake: IV 123 Intake, IV Titration 85 Amount Sodium Chloride 0.9% 1, 85 000 ml In Empty Bag 1 bag @ 1 ML/KG/HR 81.73 mls/ hr IV .[id number] ONE Rx#: [id number] Oral 1044 580 Other: Voiding Method Toilet # Voids 3 1 0 # Bowel Movements 0 - Exam PHYSICAL EXAMINATION: GENERAL: The patient is alert and oriented x3, not in any acute distress. Well developed, well nourished. HEENT: Pupils are round and equally reacting to light. EOMI. No scleral icterus. No conjunctival pallor. Normocephalic, atraumatic. No pharyngeal erythema. No thyromegaly. CARDIOVASCULAR: S1 and S2 present. No murmurs, rubs, or gallops. PULMONARY: Chest is clear to auscultation, no wheezing or crackles. ABDOMEN: Soft, nontender, nondistended, normoactive bowel sounds. No palpable organomegaly. MUSCULOSKELETAL: No joint swelling or deformity. EXTREMITIES: No cyanosis, clubbing, or pedal edema. NEUROLOGICAL: Gross neurological examination did not reveal any focal deficits. SKIN: No rashes. - Labs CBC & Chem 7: 06/01/18 05:52 05/31/18 07:54 Assessment and Plan Plan: -Acute non-ST elevation microinfarction status post angioplasty as mentioned above, FFR today -Hypothyroidism -Hypertension -Hyperlipidemia Plan is to continue with present medications cardiac catheterization and FFR tomorrow depending on the FFR results patient management at undergo stenting of LAD
[2018-06-01] MEDS: ATORVASTATIN 80 MG TAB PO SCH (20:35)
[2018-06-01] MEDS: BISOPROLOL-HCTZ 10-6.25 MG 1 EACH TAB PO SCH (20:36)
[2018-06-01] MEDS: LEVOTHYROXINE 75 MCG TAB PO SCH (20:36)
[2018-06-01] MEDS: HYDROmorphone 0.5 MG/0.5 ML SYRINGE IVP PRN (20:50)
[2018-06-01] MEDS: HYDROcodone/APAP 10-325MG 1 EACH TAB PO PRN (21:29)
[2018-06-02] MEDS: SODIUM CHLORIDE 0.9% 1,000 ML IV SCH ×12 (00:13→21:08)
[2018-06-02 03:13] LABS: Glucose,Whole Blood 116 mg/dL (75-99)
[2018-06-02] MEDS: HYDROmorphone 0.5 MG/0.5 ML SYRINGE IVP STA ×2 (03:19→14:59)
[2018-06-02 03:43] LABS: Basophils % (A) 0 %; Eosinophils # (A) 0.3 k/uL (0-0.7); Eosinophils % (A) 3 %; HCT 34.3 % (34.0-46.0); Lymphocytes # (A) 3.1 k/uL (1.0-4.8); Lymphocytes % (A) 29 %; MCH 26.5 pg (25.0-35.0); MCHC 31.9 g/dL (31.0-37.0); MCV 83.2 fL (80.0-100.0); Mean Platelet Volume 6.8; Monocytes # (A) 0.6 k/uL (0-1.0); Monocytes % (A) 5 %; Neutrophils # (A) 6.6 k/uL (1.3-7.7); Neutrophils % (A) 60 %; Platelet Count 236 k/uL (150-450); RBC 4.12 m/uL (3.80-5.40); RDW 13.9 % (11.5-15.5); WBC 10.9 k/uL (3.8-10.6)
[2018-06-02 03:47] LABS: HGB 10.9 gm/dL (11.4-16.0)
[2018-06-02 03:55] LABS: Anion Gap 6 mmol/L; Blood Urea Nitrogen 12 mg/dL (7-17); Calcium 8.6 mg/dL (8.4-10.2); Carbon Dioxide 25 mmol/L (22-30); Chloride 107 mmol/L (98-107); Glucose 118 mg/dL (74-99); Magnesium 1.9 mg/dL (1.6-2.3); Potassium 3.9 mmol/L (3.5-5.1); Sodium 138 mmol/L (137-145)
[2018-06-02] MEDS: HYDROcodone/APAP 10-325MG 1 EACH TAB PO PRN (06:33)
[2018-06-02] MEDS: PANTOPRAZOLE 40 MG TABLET PO SCH (06:34)
[2018-06-02 07:41] LABS: Basophils % (A) 0 %; Eosinophils # (A) 0.2 k/uL (0-0.7); Eosinophils % (A) 3 %; HCT 30.6 % (34.0-46.0); Lymphocytes # (A) 1.6 k/uL (1.0-4.8); Lymphocytes % (A) 18 %; MCH 27.4 pg (25.0-35.0); MCHC 32.8 g/dL (31.0-37.0); MCV 83.7 fL (80.0-100.0); Monocytes # (A) 0.5 k/uL (0-1.0); Monocytes % (A) 5 %; Neutrophils # (A) 6.3 k/uL (1.3-7.7); Neutrophils % (A) 72 %; Platelet Count 193 k/uL (150-450); RBC 3.66 m/uL (3.80-5.40); RDW 13.8 % (11.5-15.5); WBC 8.7 k/uL (3.8-10.6)
[2018-06-02 07:51] LABS: Calcium 8.6 mg/dL (8.4-10.2); Potassium 4.2 mmol/L (3.5-5.1)
--- NOTE | 2018-06-02 09:31 | US ---
EXAMINATION TYPE: US lower ext pseudo artery LT DATE OF EXAM: 06/02/2018 COMPARISON: NONE CLINICAL HISTORY: r/o pseudoaneurysm. Post left groin cardiac catheterization 06/01/2018; pain and ec chymosis left groin EXAM PERFORMED: Grayscale and color Doppler duplex imaging performed of the groin, post cardiac natalie ter to assess for pseudoaneurysm. SIDE PERFORMED: left Color and Waveform Doppler performed to assess for the presence of pseudoaneurysm; Is there ultrasound evidence of a pseudoaneurysm: yes, couple of lumens seen; size of maximal dilate d pseudoaneurysm appears to = 17.9 x 4.8 x 3.8cm with echogenic internal wall thrombus noted especial ly mid and distally; neck of pseudoaneurysm height = 1.6cm A/P and neck width = 4.5mm. Is there evidence of AV shunting: no Is there a fluid collection present: surrounding tissue edema is noted IMPRESSION: Partially thrombosed pseudoaneurysm left groin A Red level critical message alert has been initiated for Myra Lazcano MD via the [employer] on 06/02/2018 9:28 AM. This message alert has been sent to Myra Lazcano MD via the preferences provided by the clinician for the receipt of Radiology Critical Findings. Message ID [id number].
[2018-06-02] MEDS: LISINOPRIL 5 MG TAB PO SCH (10:31)
[2018-06-02] MEDS: ASPIRIN 81 MG PO SCH (10:32)
[2018-06-02] MEDS: TICAGRELOR 90 MG TAB PO SCH (10:32)
--- NOTE | 2018-06-02 11:16 | P.PN ---
Subjective 67-year-old pleasant female was admitted secondary to non-ST elevation myocardial infarction patient underwent stenting of obtuse marginal branch patient has totally occluded RCA with collaterals and 60-70% stenosis of LAD for which patient will undergo FFR tomorrow. Patient is chest pain-free at this time. 06/01/2018 No overnight events patient denied any chest pain patient in for cardiac catheterization today 06/02/2018 Patient is status post repeat cardiac catheterization does not appear to have any hemodynamically significant stenosis in left anterior descending. Unfortunately patient ended up having a pseudoaneurysm because of which I'm consulted and vascular surgery complaining of pain in the groin area and surgical site area. Constitutional: Denied any fatigue denied any fever. Cardio vascular: denied any chest pain, palpitations Gastrointestinal denied any nausea vomiting Pulmonary: Denied any shortness of breath cough Neurologic denied any new focal deficits All inpatient medications were reviewed and appropriate changes in these medications as dictated in the interval history and assessment and plan. Objective - Vital Signs Vital signs: Vital Signs Temp 98.1 F 06/02/18 08:00 Pulse 99 06/02/18 08:00 Resp 18 06/02/18 08:00 BP 117/58 06/02/18 08:00 Pulse Ox 96 06/02/18 08:00 Intake & Output 06/01/18 06/02/18 06/02/18 18:59 06:59 18:59 Intake Total 603 600 600 Output Total 300 Balance 603 300 600 Weight 83.4 kg Intake: IV 123 Intake, IV Titration 500 600 Amount Sodium Chloride 0.9% 1, 600 000 ml @ 100 mls/hr IV . Q10H RUBIA Rx#:[id number] Sodium Chloride 0.9% 1, 500 000 ml @ 500 mls/hr IV . Q2H RUBIA Rx#:[id number] Oral 480 100 Output: Urine 300 Other: Voiding Method Bedpan Bedpan # Voids 0 1 1 # Bowel Movements 0 - Exam PHYSICAL EXAMINATION: GENERAL: The patient is alert and oriented x3, not in any acute distress. Well developed, well nourished. HEENT: Pupils are round and equally reacting to light. EOMI. No scleral icterus. No conjunctival pallor. Normocephalic, atraumatic. No pharyngeal erythema. No thyromegaly. CARDIOVASCULAR: S1 and S2 present. No murmurs, rubs, or gallops. PULMONARY: Chest is clear to auscultation, no wheezing or crackles. ABDOMEN: Soft, nontender, nondistended, normoactive bowel sounds. No palpable organomegaly. MUSCULOSKELETAL: No joint swelling or deformity. EXTREMITIES: No cyanosis, clubbing, or pedal edema. Left groin swelling and pseudoaneurysm NEUROLOGICAL: Gross neurological examination did not reveal any focal deficits. SKIN: No rashes. - Labs CBC & Chem 7: 06/02/18 07:07 06/02/18 07:07 Labs: Abnormal Lab Results - Last 24 Hours (Table) 06/02/18 06/02/18 06/02/18 Range/Units 03:11 03:28 03:28 WBC 10.9 H (3.8-10.6) k/uL RBC (3.80-5.40) m/uL Hgb 10.9 L D (11.4-16.0) gm/dL Hct (34.0-46.0) % Glucose 118 H (74-99) mg/dL POC Glucose (mg/dL) 116 H (75-99) mg/dL 06/02/18 06/02/18 Range/Units 07:07 07:07 WBC (3.8-10.6) k/uL RBC 3.66 L (3.80-5.40) m/uL Hgb 10.0 L (11.4-16.0) gm/dL Hct 30.6 L (34.0-46.0) % Glucose 111 H (74-99) mg/dL POC Glucose (mg/dL) (75-99) mg/dL Assessment and Plan Plan: -Acute non-ST elevation myocardial infarction status post angioplasty as mentioned above, patient had FFR as today which is complicated by pseudoaneurysm. Although FFR did not show any evidence of hemodynamically significant stenosis in her LAD -Post surgical complication, pseudoaneurysm, vascular surgery was consulted. -Hypothyroidism -Hypertension -Hyperlipidemia Plan is to continue with present medications cardiac catheterization and FFR tomorrow depending on the FFR results patient management at undergo stenting of LAD
[2018-06-02] MEDS ORDERED: IV FLUID CONTINUATION 1,000 ML IV ONE (11:45)
[2018-06-02] MEDS ORDERED: ePHEDrine SULFATE/0.9% NACL/PF 50 MG/5 ML SYRINGE IV ONE (11:50)
[2018-06-02] MEDS ORDERED: LIDOCAINE 1% INJ 10MG/ML (20 ML MDV) ONE (11:50)
[2018-06-02] MEDS ORDERED: SUCCINYLCHOLINE CHLORIDE 100 MG/5 ML SYR IV ONE (11:50)
[2018-06-02] MEDS ORDERED: PROPOFOL 10 MG/ML 20 ML VIAL IV ONE (11:50)
[2018-06-02] MEDS ORDERED: PROTAMINE SULFATE 10 MG/ML 5 ML VIAL IV ONE (11:50)
[2018-06-02] MEDS ORDERED: MIDAZOLAM 2 MG/2 ML VIAL ONE (11:50)
[2018-06-02] MEDS ORDERED: PHENYLEPHRINE-0.9% NACL SYG 1 MG/10 ML SYRINGE ONE (11:50)
[2018-06-02] MEDS ORDERED: fentaNYL (PF) 50 MCG/ML 2 ML AMP ONE (11:50)
[2018-06-02] MEDS ORDERED: ONDANSETRON 4 MG/2 ML VIAL IVP ONE (11:50)
[2018-06-02] MEDS ORDERED: HEPARIN SODIUM,PORCINE 5,000 UNIT/ML 1 ML VIAL ONE (11:50)
[2018-06-02 12:26] LABS: HCT 28.8 % (34.0-46.0); HGB 9.4 gm/dL (11.4-16.0); MCH 26.6 pg (25.0-35.0); MCHC 32.5 g/dL (31.0-37.0); MCV 81.8 fL (80.0-100.0); Mean Platelet Volume 7.7; Platelet Count 192 k/uL (150-450); RBC 3.52 m/uL (3.80-5.40); WBC 7.9 k/uL (3.8-10.6)
[2018-06-02] MEDS ORDERED: LACTATED RINGERS 1,000 ML IV ONE (12:48)
[2018-06-02] MEDS ORDERED: HEPARIN SODIUM (1,000 UNIT/ML) 10,000 UNIT in SODIUM CHLORIDE 0.9% 1,000 ML IRRIGATION ONE (12:49)
[2018-06-02] MEDS ORDERED: CEFAZOLIN IRRIGATION ONE ×2 (12:49→12:50)
[2018-06-02] MEDS ORDERED: BACITRACIN IRRIGATION ONE ×2 (12:49→12:50)
[2018-06-02] MEDS ORDERED: SODIUM CHLORIDE 0.9% 1,000 ML IV ONE (12:49)
[2018-06-02] MEDS ORDERED: SODIUM CHLORIDE 0.9% IRRIGATION ONE (12:49)
[2018-06-02] MEDS ORDERED: [UNRECOGNIZED DRUG - OTHER] IRRIGATION ONE (12:50)
[2018-06-02] MEDS ORDERED: THROMBIN (BOVINE) 5,000 UNIT VIAL TOPICAL ONE (13:06)
[2018-06-02] MEDS ORDERED: GELATIN SPONGE,ABSORB (LARGE) 1 EACH SPONGE TOPICAL ONE (13:07)
--- NOTE | 2018-06-02 14:35 | P.CON ---
Consult Note - . Consult date: 06/02/18 Assessment/Plan:: Patient is a 67-year-old female who presented recently to the hospital complaining of chest pain or shortness breath. She was found be suffering from a and STEMI and underwent cardiac catheterization via the left femoral artery approach. Post procedure she was noted have some pain and swelling in the left inguinal area. Duplex ultrasound of this demonstrated an active pseudoaneurysm with partial thrombosis. Because the size of the pseudoaneurysm and the fact that the patient needs to remain on anticoagulants from a cardiac standpoint patient is offered surgical repair. Past medical history significant for coronary artery disease as well as hypertension medication-induced coagulopathy hypothyroidism, anemia, dyslipidemia. Past surgical history is significant for appendectomy, tonsillectomy and adenoidectomy, tubal ligation, left total knee replacement, repair of left Achilles tendon. Social history significant for a history of tobacco use although the patient does not currently use tobacco. Physical examination revealed a pleasant appearing female who appeared her stated age and was in no significant distress. Neck is supple free of adenopathy or bruit. Heart was regular lungs were clear and abdomen is soft and benign. A FemoStop is in place overlying the left femoral area. Palpable posterior tibial pulses noted on the left. There is no leg edema. Review of laboratory values demonstrates a hemoglobin 9.8. Impression: #1 pseudoaneurysm left femoral artery. #2 anemia. #3 coronary artery disease status post and STEMI/cardiac stenting. #4 hypertension. #5 dyslipidemia #6 history of tobacco use. Plan: Repair of pseudoaneurysm. Thank you very much for allowing me to participate in the care of your patient. I certainly will keep you abreast as to her surgical progress.
[2018-06-02] MEDS ORDERED: HYDROmorphone 1 MG/ML 1 ML SYRINGE IVP ONE (14:50)
--- NOTE | 2018-06-02 15:44 | P.PN ---
Subjective Progress Note Date: 06/02/18 This is a pleasant 67-year-old female who was seen in consultation yesterday by Dr. VC Thompson. She presented to the emergency room with symptoms of feeling her heart racing fast with associated shortness of breath. The initial EKG performed in the emergency room showed a normal sinus rhythm with minimal ST-T wave changes, subsequent EKG showed more ST depression in V5 61 and aVL, patient had evidence also left ventricular hypertrophy. The initial troponin in the emergency room came back to be 0.162. In view of the EKG changes, continued symptoms, abnormal troponin the patient was advised to undergo cardiac catheterization. Cardiac catheterization revealed significant triple-vessel coronary artery disease, with the LAD having an area of long stenosis of about 60%, diagonal branch 60-70%, circumflex gave rise to a good size obtuse marginal branch which had a 90% stenosis, the right coronary artery was totally occluded and there are good collaterals from the left system. Subsequent to that patient did undergo angioplasty with stenting of the obtuse marginal branch. Patient was seen and examined this morning, feels well, denies any chest pain or difficulty in breathing. She's been up ambulating without any difficulty in breathing. Echocardiogram with Doppler study was performed which revealed an ejection fraction of 50-55%. Blood pressure 130/70 with a heart rate in the 70s. White blood cell count 8.9, hemoglobin 14.6, platelet count 183. Sodium 142, potassium 3.8, BUN [address] Sun did come in to see the patient today discussed with her regarding proceeding tomorrow with an FFR of the LAD. If the FFR comes back to be significant patient will undergo stenting of the LAD. 06/02/2018 Patient was taken to the cardiac catheterization lab yesterday where she underwent an FFR procedure. Initially the attempt was made to go through the right radial artery, subsequently the left femoral artery was used. FFR showed nonhemodynamically significant lesion in the mid LAD with an FFR of 0.86. Patient was recommended to continue on current therapy. Throughout the night last night, patient developed hematoma, FemoStop was applied, occasions because each time when this time stop was removed the area of firmness returned. At the time of my examination this morning, patient had a FemoStop in place, I removed the FemoStop, patient again developed a large hematoma, manual pressure was held, upon auscultation of that site, it was noted that the patient had a loud bruit. For this reason an ultrasound of the groin was requested. Ultrasound of the groin showed evidence of a pseudoaneurysm, surgical consultation was requested with Dr. Denson. Patient was typed and crossed for 2 units of packed red blood cells, she was then taken to the operating room for repair of the pseudoaneurysm. Blood pressure 100/60, heart rate in the 60s to 80s, afebrile. White blood cell count 8.7, hemoglobin 10.0, platelet count 193. Sodium 139, potassium 4.2, BUN 11 and creatinine 0.8. The patient's hemoglobin on the of this month was 15.3. Objective - Vital Signs Vital signs: Vital Signs Temp 97.9 F 06/02/18 14:20 Pulse 62 06/02/18 15:20 Resp 16 06/02/18 15:20 BP 100/64 06/02/18 15:20 Pulse Ox 96 06/02/18 15:20 Intake & Output 06/01/18 06/02/18 06/02/18 18:59 06:59 18:59 Intake Total 357 066 2353 Output Total 300 1200 Balance 603 300 581 Weight 83.4 kg Intake: IV 123 751 Intake, IV Titration 500 600 Amount Sodium Chloride 0.9% 1, 600 000 ml @ 100 mls/hr IV . Q10H [facility] Rx#:[id number] Sodium Chloride 0.9% 1, 500 000 ml @ 500 mls/hr IV . Q2H [facility] Rx#:[id number] Oral 480 100 120 Blood Product 310 Rc Pheresis 2 As3 Unit 310 [id number] Output: Urine 300 600 Estimated Blood Loss 600 Other: Voiding Method Bedpan Bedpan # Voids 0 1 1 # Bowel Movements 0 - Exam PHYSICAL EXAMINATION: GENERAL: 67-year-old female in no acute distress at the time of my examination HEENT: Head is atraumatic, normocephalic. Pupils equal, round. Sclera anicteric. Conjunctiva are clear. Mucous membranes of the mouth are moist. Neck is supple. There is no elevated jugular venous pressure. No carotid bruit is heard. HEART EXAMINATION: Heart S1, S2 normal. No murmur or gallop heard. CHEST EXAMINATION: Lungs are clear to auscultation and precussion. No chest wall tenderness is noted on palpation or with deep breathing. ABDOMEN: Soft, nontender. Bowel sounds are heard. No organomegaly noted. EXTREMITIES: 2+ peripheral pulses with no evidence of peripheral edema and no calf tenderness noted. Right groin soft, no evidence of any hematoma. Right radial site clean and dry, good distal pulse. Left groin shows a large sized hematoma with evidence of a loud bruit. NEUROLOGIC patient is awake, alert and oriented 3 . . - Labs CBC & Chem 7: 06/02/18 12:00 06/02/18 07:07 Labs: Abnormal Lab Results - Last 24 Hours (Table) 06/02/18 06/02/18 06/02/18 Range/Units 03:11 03:28 03:28 WBC 10.9 H (3.8-10.6) k/uL RBC (3.80-5.40) m/uL Hgb 10.9 L D (11.4-16.0) gm/dL Hct (34.0-46.0) % Glucose 118 H (74-99) mg/dL POC Glucose (mg/dL) 116 H (75-99) mg/dL Crossmatch 06/02/18 06/02/18 06/02/18 Range/Units 07:07 07:07 12:00 WBC (3.8-10.6) k/uL RBC 3.66 L (3.80-5.40) m/uL Hgb 10.0 L (11.4-16.0) gm/dL Hct 30.6 L (34.0-46.0) % Glucose 111 H (74-99) mg/dL POC Glucose (mg/dL) (75-99) mg/dL Crossmatch See Detail 06/02/18 Range/Units 12:00 WBC (3.8-10.6) k/uL RBC 3.52 L (3.80-5.40) m/uL Hgb 9.4 L (11.4-16.0) gm/dL Hct 28.8 L (34.0-46.0) % Glucose (74-99) mg/dL POC Glucose (mg/dL) (75-99) mg/dL Crossmatch Assessment and Plan Plan: Assessment and plan #1 non-STEMI status post angioplasty and stenting of the obtuse marginal branch. Patient was also found to have a totally occluded RCA with collaterals from the left system, status post FFR of the LAD which came back to be 0.86. Therapy for that artery recommended. #2 hyperlipidemia #3 hypertension #4 hypothyroidism #5 left groin pseudoaneurysm Plan Vascular surgery was consulted and patient was taken to the operating room to undergo repair of pseudoaneurysm. Repeat CBC this evening and tomorrow morning. Further recommendations to follow. DNP note has been reviewed, I agree with a documented findings and plan of care. Patient was seen and examined.
[2018-06-02] MEDS: HYDROmorphone 0.5 MG/0.5 ML SYRINGE IVP PRN (17:10)
[2018-06-02] MEDS: HYDROcodone/APAP 5-325MG 1 EACH TAB PO PRN (20:10)
[2018-06-02] MEDS: LEVOTHYROXINE 75 MCG TAB PO SCH (21:04)
[2018-06-02] MEDS: BISOPROLOL-HCTZ 10-6.25 MG 1 EACH TAB PO SCH (21:04)
[2018-06-02] MEDS: ATORVASTATIN 80 MG TAB PO SCH (21:04)
[2018-06-02 21:07] LABS: Basophils % (A) 0 %; Eosinophils # (A) 0.2 k/uL (0-0.7); Eosinophils % (A) 2 %; HCT 28.3 % (34.0-46.0); HGB 9.3 gm/dL (11.4-16.0); Hypochromasia Slight; Lymphocytes # (A) 2.2 k/uL (1.0-4.8); Lymphocytes % (A) 21 %; MCH 28.2 pg (25.0-35.0); MCHC 32.9 g/dL (31.0-37.0); MCV 85.8 fL (80.0-100.0); Mean Platelet Volume 6.9; Monocytes # (A) 0.6 k/uL (0-1.0); Monocytes % (A) 6 %; Neutrophils % (A) 68 %; Platelet Count 156 k/uL (150-450); RBC 3.29 m/uL (3.80-5.40); RDW 14.1 % (11.5-15.5); WBC 10.3 k/uL (3.8-10.6)
[2018-06-03] MEDS: SODIUM CHLORIDE 0.9% 1,000 ML IV SCH ×12 (00:20→22:23)
[2018-06-03] MEDS: HYDROmorphone 0.5 MG/0.5 ML SYRINGE IVP PRN ×4 (00:36→21:47)
[2018-06-03] MEDS: HYDROcodone/APAP 5-325MG 1 EACH TAB PO PRN ×2 (03:14→11:04)
[2018-06-03] MEDS: PANTOPRAZOLE 40 MG TABLET PO SCH (06:49)
[2018-06-03 07:33] LABS: Basophils % (A) 0 %; Eosinophils # (A) 0.4 k/uL (0-0.7); Eosinophils % (A) 3 %; HGB 8.3 gm/dL (11.4-16.0); Lymphocytes # (A) 2.3 k/uL (1.0-4.8); Lymphocytes % (A) 23 %; MCH 26.9 pg (25.0-35.0); MCHC 31.9 g/dL (31.0-37.0); MCV 84.3 fL (80.0-100.0); Monocytes # (A) 0.6 k/uL (0-1.0); Monocytes % (A) 6 %; Neutrophils # (A) 6.6 k/uL (1.3-7.7); Neutrophils % (A) 65 %; Platelet Count 145 k/uL (150-450); RBC 3.08 m/uL (3.80-5.40); RDW 14.2 % (11.5-15.5); WBC 10.1 k/uL (3.8-10.6)
[2018-06-03] MEDS ORDERED: [UNRECOGNIZED DRUG - OTHER] PO PRN (07:47)
[2018-06-03] MEDS: LISINOPRIL 5 MG TAB PO SCH (08:55)
[2018-06-03] MEDS: ASPIRIN 81 MG PO SCH (08:55)
--- NOTE | 2018-06-03 11:54 | P.PN ---
Subjective 67-year-old pleasant female was admitted secondary to non-ST elevation myocardial infarction patient underwent stenting of obtuse marginal branch patient has totally occluded RCA with collaterals and 60-70% stenosis of LAD for which patient will undergo FFR tomorrow. Patient is chest pain-free at this time. 06/01/2018 No overnight events patient denied any chest pain patient in for cardiac catheterization today 06/02/2018 Patient is status post repeat cardiac catheterization does not appear to have any hemodynamically significant stenosis in left anterior descending. Unfortunately patient ended up having a pseudoaneurysm because of which I'm consulted and vascular surgery complaining of pain in the groin area and surgical site area. 06/03/2018 Patient underwent surgical repair pseudoaneurysm in the left groin area. Patient is still company of severe pain in that area. Constitutional: Denied any fatigue denied any fever. Cardio vascular: denied any chest pain, palpitations Gastrointestinal denied any nausea vomiting Pulmonary: Denied any shortness of breath cough Neurologic denied any new focal deficits All inpatient medications were reviewed and appropriate changes in these medications as dictated in the interval history and assessment and plan. Objective - Vital Signs Vital signs: Vital Signs Temp 98.1 F 06/03/18 11:26 Pulse 89 06/03/18 11:26 Resp 18 06/03/18 11:26 BP 97/52 06/03/18 11:26 Pulse Ox 96 06/03/18 11:26 Intake & Output 06/02/18 06/03/18 06/03/18 18:59 06:59 18:59 Intake Total 2141 600 Output Total 1830 80 10 Balance 311 520 -10 Weight 85.9 kg Intake: IV 751 Intake, IV Titration 600 600 Amount Sodium Chloride 0.9% 1, 600 000 ml @ 0 mls/hr IV .STK -[facility] Rx#:[id number] Sodium Chloride 0.9% 1, 600 000 ml @ 100 mls/hr IV . Q10H [facility] Rx#:[id number] Oral 480 Blood Product 310 Rc Pheresis 2 As3 Unit 310 [id number] Output: Drainage 30 80 10 Left Groin 30 80 10 Urine 1200 Estimated Blood Loss 600 Other: Voiding Method Bedpan Indwelling Catheter # Voids 1 - Exam PHYSICAL EXAMINATION: GENERAL: The patient is alert and oriented x3, not in any acute distress. Well developed, well nourished. HEENT: Pupils are round and equally reacting to light. EOMI. No scleral icterus. No conjunctival pallor. Normocephalic, atraumatic. No pharyngeal erythema. No thyromegaly. CARDIOVASCULAR: S1 and S2 present. No murmurs, rubs, or gallops. PULMONARY: Chest is clear to auscultation, no wheezing or crackles. ABDOMEN: Soft, nontender, nondistended, normoactive bowel sounds. No palpable organomegaly. MUSCULOSKELETAL: No joint swelling or deformity. EXTREMITIES: No cyanosis, clubbing, or pedal edema. Left groin swelling and pseudoaneurysm NEUROLOGICAL: Gross neurological examination did not reveal any focal deficits. SKIN: No rashes. - Labs CBC & Chem 7: 06/03/18 07:10 06/02/18 07:07 Labs: Abnormal Lab Results - Last 24 Hours (Table) 06/02/18 06/02/18 06/02/18 Range/Units 12:00 12:00 20:23 RBC 3.52 L 3.29 L (3.80-5.40) m/uL Hgb 9.4 L 9.3 L (11.4-16.0) gm/dL Hct 28.8 L 28.3 L (34.0-46.0) % Plt Count (150-450) k/uL Crossmatch See Detail 06/03/18 Range/Units 07:10 RBC 3.08 L (3.80-5.40) m/uL Hgb 8.3 L (11.4-16.0) gm/dL Hct 26.0 L (34.0-46.0) % Plt Count 145 L (150-450) k/uL Crossmatch Assessment and Plan Plan: -Acute non-ST elevation myocardial infarction status post angioplasty as mentioned above, patient had FFR as today which is complicated by pseudoaneurysm. Although FFR did not show any evidence of hemodynamically significant stenosis in her LAD -Post surgical complication, pseudoaneurysm, patient underwent repair of the pseudoaneurysm will be monitored pain will be appropriately treated. -Hypothyroidism -Hypertension -Hyperlipidemia Plan is to continue with present medications cardiac catheterization and FFR tomorrow depending on the FFR results patient management at undergo stenting of LAD
--- NOTE | 2018-06-03 14:13 | P.PN ---
Subjective Progress Note Date: 06/03/18 This is a pleasant 67-year-old female who was seen in consultation yesterday by Dr. VC Thompson. She presented to the emergency room with symptoms of feeling her heart racing fast with associated shortness of breath. The initial EKG performed in the emergency room showed a normal sinus rhythm with minimal ST-T wave changes, subsequent EKG showed more ST depression in V5 61 and aVL, patient had evidence also left ventricular hypertrophy. The initial troponin in the emergency room came back to be 0.162. In view of the EKG changes, continued symptoms, abnormal troponin the patient was advised to undergo cardiac catheterization. Cardiac catheterization revealed significant triple-vessel coronary artery disease, with the LAD having an area of long stenosis of about 60%, diagonal branch 60-70%, circumflex gave rise to a good size obtuse marginal branch which had a 90% stenosis, the right coronary artery was totally occluded and there are good collaterals from the left system. Subsequent to that patient did undergo angioplasty with stenting of the obtuse marginal branch. Patient was seen and examined this morning, feels well, denies any chest pain or difficulty in breathing. She's been up ambulating without any difficulty in breathing. Echocardiogram with Doppler study was performed which revealed an ejection fraction of 50-55%. Blood pressure 130/70 with a heart rate in the 70s. White blood cell count 8.9, hemoglobin 14.6, platelet count 183. Sodium 142, potassium 3.8, BUN [address] Sun did come in to see the patient today discussed with her regarding proceeding tomorrow with an FFR of the LAD. If the FFR comes back to be significant patient will undergo stenting of the LAD. 06/02/2018 Patient was taken to the cardiac catheterization lab yesterday where she underwent an FFR procedure. Initially the attempt was made to go through the right radial artery, subsequently the left femoral artery was used. FFR showed nonhemodynamically significant lesion in the mid LAD with an FFR of 0.86. Patient was recommended to continue on current therapy. Throughout the night last night, patient developed hematoma, FemoStop was applied, occasions because each time when this time stop was removed the area of firmness returned. At the time of my examination this morning, patient had a FemoStop in place, I removed the FemoStop, patient again developed a large hematoma, manual pressure was held, upon auscultation of that site, it was noted that the patient had a loud bruit. For this reason an ultrasound of the groin was requested. Ultrasound of the groin showed evidence of a pseudoaneurysm, surgical consultation was requested with Dr. Denson. Patient was typed and crossed for 2 units of packed red blood cells, she was then taken to the operating room for repair of the pseudoaneurysm. Blood pressure 100/60, heart rate in the 60s to 80s, afebrile. White blood cell count 8.7, hemoglobin 10.0, platelet count 193. Sodium 139, potassium 4.2, BUN 11 and creatinine 0.8. The patient's hemoglobin on the of this month was 15.3. 06/03/2018 Patient was seen and examined this morning, continues to have a dressing at the left groin with a Z[place] drain in place. According to the patient, she is having much less pain at that site today. Blood pressure 104/56 with a heart rate in the 80s, 96% on room air. White blood cell count 10.1, hemoglobin 8.3, platelet count 145. Objective - Vital Signs Vital signs: Vital Signs Temp 98.1 F 06/03/18 11:26 Pulse 80 06/03/18 13:54 Resp 18 06/03/18 11:26 BP 104/55 06/03/18 13:54 Pulse Ox 96 06/03/18 11:26 Intake & Output 06/02/18 06/03/18 06/03/18 18:59 06:59 18:59 Intake Total 2141 600 240 Output Total 1830 80 10 Balance 311 520 230 Weight 85.9 kg Intake: IV 751 Intake, IV Titration 600 600 Amount Sodium Chloride 0.9% 1, 600 000 ml @ 0 mls/hr IV .STK -[facility] Rx#:[id number] Sodium Chloride 0.9% 1, 600 000 ml @ 100 mls/hr IV . Q10H [facility] Rx#:[id number] Oral 480 240 Blood Product 310 Rc Pheresis 2 As3 Unit 310 [id number] Output: Drainage 30 80 10 Left Groin 30 80 10 Urine 1200 Estimated Blood Loss 600 Other: Voiding Method Bedpan Indwelling Catheter # Voids 1 - Exam PHYSICAL EXAMINATION: GENERAL: 67-year-old female in no acute distress at the time of my examination HEENT: Head is atraumatic, normocephalic. Pupils equal, round. Sclera anicteric. Conjunctiva are clear. Mucous membranes of the mouth are moist. Neck is supple. There is no elevated jugular venous pressure. No carotid bruit is heard. HEART EXAMINATION: Heart S1, S2 normal. No murmur or gallop heard. CHEST EXAMINATION: Lungs are clear to auscultation and precussion. No chest wall tenderness is noted on palpation or with deep breathing. ABDOMEN: Soft, nontender. Bowel sounds are heard. No organomegaly noted. EXTREMITIES: 2+ peripheral pulses with no evidence of peripheral edema and no calf tenderness noted. Right groin soft, no evidence of any hematoma. Right radial site clean and dry, good distal pulse. Left groin shows a large sized hematoma with evidence of a loud bruit. NEUROLOGIC patient is awake, alert and oriented 3 . . - Labs CBC & Chem 7: 06/03/18 07:10 06/02/18 07:07 Labs: Abnormal Lab Results - Last 24 Hours (Table) 06/02/18 06/03/18 Range/Units 20:23 07:10 RBC 3.29 L 3.08 L (3.80-5.40) m/uL Hgb 9.3 L 8.3 L (11.4-16.0) gm/dL Hct 28.3 L 26.0 L (34.0-46.0) % Plt Count 145 L (150-450) k/uL Assessment and Plan Plan: Assessment and plan #1 non-STEMI status post angioplasty and stenting of the obtuse marginal branch. Patient was also found to have a totally occluded RCA with collaterals from the left system, status post FFR of the LAD which came back to be 0.86. Therapy for that artery recommended. #2 hyperlipidemia #3 hypertension #4 hypothyroidism #5 left groin pseudoaneurysm status post repair Plan From cardiology's perspective, we'll recommend to continue the patient on her current medications. We will repeat a CBC in the morning. DNP note has been reviewed, I agree with a documented findings and plan of care. Patient was seen and examined.
--- NOTE | 2018-06-03 15:40 | P.PN ---
Subjective Progress Note Date: 06/03/18 Principal diagnosis: Status post repair left femoral pseudoaneurysm Patient is evaluated today in follow-up care. She is experiencing some incisional discomfort but otherwise is doing well. Examination revealed a palpable posterior tibial pulse on the left. Surgical wounds clean, dry and otherwise unremarkable. Drain is draining serosanguineous fluid and is removed. There is no evidence of erythema or other issue with the wound. Plan: Drain Is removed today. From a vascular surgical standpoint patient may be up and about without restriction. Labs are reviewed. Patient may shower over the wound with soap and water. I would like to see the patient in follow-up in the office in one week. Card was given to the patient for scheduling of appointment. Objective - Vital Signs Vital signs: Vital Signs Temp 98.1 F 06/03/18 11:26 Pulse 80 06/03/18 13:54 Resp 18 06/03/18 11:26 BP 104/55 06/03/18 13:54 Pulse Ox 96 06/03/18 11:26 Intake & Output 06/02/18 06/03/18 06/03/18 18:59 06:59 18:59 Intake Total 2141 600 240 Output Total 1830 80 1110 Balance 311 520 -870 Weight 85.9 kg Intake: IV 751 Intake, IV Titration 600 600 Amount Sodium Chloride 0.9% 1, 600 000 ml @ 0 mls/hr IV .STK -[facility] Rx#:[id number] Sodium Chloride 0.9% 1, 600 000 ml @ 100 mls/hr IV . Q10H [facility] Rx#:[id number] Oral 480 240 Blood Product 310 Rc Pheresis 2 As3 Unit 310 [id number] Output: Drainage 30 80 10 Left Groin 30 80 10 Urine 1200 1100 Estimated Blood Loss 600 Other: Voiding Method Bedpan Indwelling Catheter # Voids 1 - Labs CBC & Chem 7: 06/03/18 07:10 06/02/18 07:07 Labs: Abnormal Lab Results - Last 24 Hours (Table) 06/02/18 06/03/18 Range/Units 20:23 07:10 RBC 3.29 L 3.08 L (3.80-5.40) m/uL Hgb 9.3 L 8.3 L (11.4-16.0) gm/dL Hct 28.3 L 26.0 L (34.0-46.0) % Plt Count 145 L (150-450) k/uL
--- NOTE | 2018-06-03 15:40 | CDI ---
Date: 06/03/2018 CDS: Juliana Mejia RN, CCDS Admit Date: 05/30/2018 Patient Name: Fabiana Muhammad ATTENTION: The Clinical Documentation Specialists (CDI) and [facility] Coding Staff appreciate your assistance in clarifying documentation. Please respond to the clarification below the line at the bottom and electronically sign. The CDI & [facility] Coding staff will review the response and follow-up if needed. Please note: Queries are made part of the Legal Health Record. If you have any questions, please contact the author of this message via ITS. Dr. Sun; Post Surgical complication, pseudoaneurysm is documented in the attending progress note 06/01/2018 Patients Admitting Diagnosis: Acute NSTEMI Post-Operative Diagnosis: Stenting of the first obtuse marginal branch with reduction of stenosis from 99% to 0% in a calcified segment Procedure performed: Cardiac Catheterization and Stenting History/Risk Factors: 67 year old female presents to the ED with chest pain. Medical history of CVA, TIA, GERD, HTN and [place] Clinical Indicators: Per Cardiology [employer] 06/02/2017 At the time of my examination this morning, patient had a FemoStop in place, I removed the FemoStop, patient again developed a large hematoma, manual pressure was held, upon auscultation of that site, it was noted that the patient had a loud bruit. Ultrasound left groin partially thrombosed pseudoaneurysm left groin Treatment: Pending Vascular procedure operative note not available Consults: Vascular Surgery In order to accurately reflect this patients severity of illness, please clarify if the post-operative Pseudoaneurysm is: XXX An expected post-surgical condition due to the Cardiac catheterization An unexpected post-surgical condition related to the Cardiac catheterization Other, please specify Unable to determine (Last Revision: Mar 2018) MTDD
[2018-06-03] MEDS: BISOPROLOL-HCTZ 10-6.25 MG 1 EACH TAB PO SCH (20:20)
[2018-06-03] MEDS: ATORVASTATIN 80 MG TAB PO SCH (20:20)
[2018-06-03] MEDS: LEVOTHYROXINE 75 MCG TAB PO SCH (20:20)
--- NOTE | 2018-06-03 23:32 | CONS ---
CONSULTATION DATE OF SERVICE: 06/03/2018. REASON FOR CONSULTATION: Left posterior heel wound. HISTORY OF PRESENT ILLNESS: The patient is a 67-year-old female who did have a left Achilles tendon repair done by [facility] in [place]. The patient apparently did have a postop complication with resultant wound that required weekly visit to the office and had debridement. The patient presented to this facility on 05/25/2018 with chest pain. Patient diagnosed with TX. The patient is status post PTCA and stenting. The patient's subsequent clinical course complicated by development of a left femoral pseudoaneurysm for the patient has been evaluated by vascular surgery and status post surgical repair of the same. I was asked to see the patient today for her left posterior heel wound and further wound management. The patient is currently afebrile. The patient denies that. Significant pain to the left posterior heel wound area. Current local care has been dry protective dressing. No significant swelling, redness or any foul-smelling drainage. The patient currently denies any chest pain or shortness of breath or cough or abdominal pain. No diarrhea. REVIEW OF SYSTEMS: Positive points have been mentioned in HPI. Rest of the review systems been negative. PAST MEDICAL HISTORY: Coronary artery disease, hypertension, hypothyroidism, anemia, and hyperlipidemia. PAST SURGICAL HISTORY: Appendectomy, tonsillectomy, adenoidectomy, tubal ligation, left knee replacement, repair left Achilles tendon. SOCIAL HISTORY: The patient denies smoking, drinking or drug use. FAMILY HISTORY: No pertinent findings noticed. ALLERGIES: More drug allergies. MEDICATION: Medications include the patient currently on: 1. Tylenol. [place]. 2. Male exam. 3. Like aspirin Lipitor, atropine, Ziac, Dilaudid. Synthroid, Zestril, not listed for chronic. PHYSICAL EXAMINATION: Blood pressure 130/59 with a pulse of 79, temperature 98, she is 95% on room air. General description is an elderly female lying in bed in no distress. No tachypnea or accessory muscles of respiration use. HEENT: Shows slight pallor. No scleral icterus. Oral mucosa is dry. No pharyngeal erythema or thrush. NECK: Trachea is central. Lungs unlabored breathing, clear to auscultation. Anteriorly, heart S1, S2. Regular rate and rhythm. ABDOMEN: Soft, no tenderness. No rigidity. Extremities: No edema of the feet. Examination of the left posterior heel area wound is currently covered with dry scab with no surrounding swelling or redness or any foul-smelling drainage. NEUROLOGICAL: Patient is awake, alert, oriented times three. Mood and affect normal. LABS: Hemoglobin 8.1, hemoglobin 10.1, BUN of 11, creatinine 1.0. 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 The patient is currently in the hospital with an myocardial infarction status post PTCA stenting and with repair of a pseudoaneurysm . Patient left posterior heel wound currently with no evidence of any cellulitis, swelling or redness. PLAN: 1. The daughter has been advised to keep new heel wound protected and not to the scab in addition because of wound protected dressing and heel protector while the patient is lying in bed provide any pressure the same. 2. I will be more than happy to reevaluate patient if any change in her clinical condition or if the scab falls off leading to wound. Further wound care will be ordered at that time as there are no signs of any systemic infection, no need for any systemic antibiotic therapy. All their questions and concerns were answered. Thank you for this consultation. RAVINDRA / TERESA: [id number] /
[2018-06-04] MEDS: SODIUM CHLORIDE 0.9% 1,000 ML IV SCH ×6 (01:00→11:19)
[2018-06-04] MEDS: HYDROmorphone 0.5 MG/0.5 ML SYRINGE IVP PRN (05:56)
[2018-06-04] MEDS: PANTOPRAZOLE 40 MG TABLET PO SCH (06:19)
[2018-06-04 07:12] LABS: HCT 25.3 % (34.0-46.0); HGB 8.5 gm/dL (11.4-16.0); MCH 28.4 pg (25.0-35.0); MCHC 33.6 g/dL (31.0-37.0); MCV 84.7 fL (80.0-100.0); Platelet Count 164 k/uL (150-450); RBC 2.99 m/uL (3.80-5.40); RDW 14.3 % (11.5-15.5)
[2018-06-04 07:23] LABS: Anion Gap 7 mmol/L; Blood Urea Nitrogen 8 mg/dL (7-17); Calcium 8.3 mg/dL (8.4-10.2); Carbon Dioxide 25 mmol/L (22-30); Chloride 106 mmol/L (98-107); Glucose 113 mg/dL (74-99); Potassium 3.8 mmol/L (3.5-5.1); Sodium 138 mmol/L (137-145)
[2018-06-04] MEDS: TICAGRELOR 90 MG TAB PO SCH ×2 (08:50→20:15)
[2018-06-04] MEDS: LISINOPRIL 5 MG TAB PO SCH ×2 (08:50→12:38)
[2018-06-04] MEDS: ASPIRIN 81 MG PO SCH (08:50)
[2018-06-04] MEDS ORDERED: HEPARIN SODIUM 1,000 UN/ML (10ML VL) ONE (08:51)
[2018-06-04] MEDS ORDERED: LIDOCAINE 1% INJ 10MG/ML (20 ML MDV) ONE (08:51)
[2018-06-04] MEDS ORDERED: SENNOSIDES 8.6 MG TAB PO PRN (11:11)
--- NOTE | 2018-06-04 12:33 | P.PN ---
Subjective Progress Note Date: 06/04/18 This is a pleasant 67-year-old female who was seen in consultation yesterday by Dr. VC Thompson. She presented to the emergency room with symptoms of feeling her heart racing fast with associated shortness of breath. The initial EKG performed in the emergency room showed a normal sinus rhythm with minimal ST-T wave changes, subsequent EKG showed more ST depression in V5 61 and aVL, patient had evidence also left ventricular hypertrophy. The initial troponin in the emergency room came back to be 0.162. In view of the EKG changes, continued symptoms, abnormal troponin the patient was advised to undergo cardiac catheterization. Cardiac catheterization revealed significant triple-vessel coronary artery disease, with the LAD having an area of long stenosis of about 60%, diagonal branch 60-70%, circumflex gave rise to a good size obtuse marginal branch which had a 90% stenosis, the right coronary artery was totally occluded and there are good collaterals from the left system. Subsequent to that patient did undergo angioplasty with stenting of the obtuse marginal branch. Patient was seen and examined this morning, feels well, denies any chest pain or difficulty in breathing. She's been up ambulating without any difficulty in breathing. Echocardiogram with Doppler study was performed which revealed an ejection fraction of 50-55%. Blood pressure 130/70 with a heart rate in the 70s. White blood cell count 8.9, hemoglobin 14.6, platelet count 183. Sodium 142, potassium 3.8, BUN [address] Sun did come in to see the patient today discussed with her regarding proceeding tomorrow with an FFR of the LAD. If the FFR comes back to be significant patient will undergo stenting of the LAD. 06/02/2018 Patient was taken to the cardiac catheterization lab yesterday where she underwent an FFR procedure. Initially the attempt was made to go through the right radial artery, subsequently the left femoral artery was used. FFR showed nonhemodynamically significant lesion in the mid LAD with an FFR of 0.86. Patient was recommended to continue on current therapy. Throughout the night last night, patient developed hematoma, FemoStop was applied, occasions because each time when this time stop was removed the area of firmness returned. At the time of my examination this morning, patient had a FemoStop in place, I removed the FemoStop, patient again developed a large hematoma, manual pressure was held, upon auscultation of that site, it was noted that the patient had a loud bruit. For this reason an ultrasound of the groin was requested. Ultrasound of the groin showed evidence of a pseudoaneurysm, surgical consultation was requested with Dr. Denson. Patient was typed and crossed for 2 units of packed red blood cells, she was then taken to the operating room for repair of the pseudoaneurysm. Blood pressure 100/60, heart rate in the 60s to 80s, afebrile. White blood cell count 8.7, hemoglobin 10.0, platelet count 193. Sodium 139, potassium 4.2, BUN 11 and creatinine 0.8. The patient's hemoglobin on the of this month was 15.3. 06/03/2018 Patient was seen and examined this morning, continues to have a dressing at the left groin with a ZELALEM drain in place. According to the patient, she is having much less pain at that site today. Blood pressure 104/56 with a heart rate in the 80s, 96% on room air. White blood cell count 10.1, hemoglobin 8.3, platelet count 145. 06/04/2018 Patient seen and examined this morning, still experiencing discomfort at the right groin however significantly improved from earlier. Her drain has been removed. She has been cleared by surgical perspective to shower over the wound with soap and water, she's also been encouraged to be up ambulating. We will plan for possible discharge home in the morning if stable. Objective - Vital Signs Vital signs: Vital Signs Temp 100 F H 06/04/18 08:10 Pulse 86 06/04/18 08:10 Resp 18 06/04/18 08:10 BP 100/55 06/04/18 08:10 Pulse Ox 98 06/04/18 08:10 Intake & Output 06/03/18 06/04/18 06/04/18 18:59 06:59 18:59 Intake Total 480 800 360 Output Total 1110 3000 Balance -630 -2200 360 Intake: Intake, IV Titration 800 Amount Sodium Chloride 0.9% 1, 800 000 ml @ 0 mls/hr IV .[facility] Rx#:[id number] Oral 480 360 Output: Drainage 10 Left Groin 10 Urine 1100 3000 Other: Voiding Method Indwelling Catheter - Exam PHYSICAL EXAMINATION: GENERAL: 67-year-old female in no acute distress at the time of my examination HEENT: Head is atraumatic, normocephalic. Pupils equal, round. Sclera anicteric. Conjunctiva are clear. Mucous membranes of the mouth are moist. Neck is supple. There is no elevated jugular venous pressure. No carotid bruit is heard. HEART EXAMINATION: Heart S1, S2 normal. No murmur or gallop heard. CHEST EXAMINATION: Lungs are clear to auscultation and precussion. No chest wall tenderness is noted on palpation or with deep breathing. ABDOMEN: Soft, nontender. Bowel sounds are heard. No organomegaly noted. EXTREMITIES: 2+ peripheral pulses with no evidence of peripheral edema and no calf tenderness noted. Right groin soft, no evidence of any hematoma. Right radial site clean and dry, good distal pulse. Left left groin is ecchymotic, small incision noted, clean and dry, [address] Soft[address] - Labs CBC & Chem 7: 06/04/18 06:08 06/04/18 06:08 Labs: Abnormal Lab Results - Last 24 Hours (Table) 06/02/18 06/04/18 06/04/18 Range/Units 12:00 06:08 06:08 WBC 11.0 H (3.8-10.6) k/uL RBC 2.99 L (3.80-5.40) m/uL Hgb 8.5 L (11.4-16.0) gm/dL Hct 25.3 L (34.0-46.0) % Glucose 113 H (74-99) mg/dL Calcium 8.3 L (8.4-10.2) mg/dL Crossmatch See Detail Assessment and Plan Plan: Assessment and plan #1 non-STEMI status post angioplasty and stenting of the obtuse marginal branch. Patient was also found to have a totally occluded RCA with collaterals from the left system, status post FFR of the LAD which came back to be 0.86. Therapy for that artery recommended. #2 hyperlipidemia #3 hypertension #4 hypothyroidism #5 left groin pseudoaneurysm status post repair Plan From cardiology's perspective, we'll recommend to continue the patient on her current medications. We will repeat a CBC in the morning. Plan for discharge home in 24 hours if stable. DNP note has been reviewed, I agree with a documented findings and plan of care. Patient was seen and examined.
[2018-06-04] MEDS: POLYETHYLENE GLYCOL 3350 17 GM POWD.PACK PO SCH (12:38)
[2018-06-04] MEDS: HYDROcodone/APAP 5-325MG 1 EACH TAB PO PRN ×2 (13:39→20:15)
--- NOTE | 2018-06-04 16:18 | P.PN ---
Subjective 67-year-old pleasant female was admitted secondary to non-ST elevation myocardial infarction patient underwent stenting of obtuse marginal branch patient has totally occluded RCA with collaterals and 60-70% stenosis of LAD for which patient will undergo FFR tomorrow. Patient is chest pain-free at this time. 06/01/2018 No overnight events patient denied any chest pain patient in for cardiac catheterization today 06/02/2018 Patient is status post repeat cardiac catheterization does not appear to have any hemodynamically significant stenosis in left anterior descending. Unfortunately patient ended up having a pseudoaneurysm because of which I'm consulted and vascular surgery complaining of pain in the groin area and surgical site area. 06/03/2018 Patient underwent surgical repair pseudoaneurysm in the left groin area. Patient is still company of severe pain in that area. 06/04/2018 Patient is feeling better than yesterday muscle surgeries recommending monitoring one more night. Patient is otherwise clinically doing well will improve her mobility today possibly of discharge tomorrow Constitutional: Denied any fatigue denied any fever. Cardio vascular: denied any chest pain, palpitations Gastrointestinal denied any nausea vomiting Pulmonary: Denied any shortness of breath cough Neurologic denied any new focal deficits All inpatient medications were reviewed and appropriate changes in these medications as dictated in the interval history and assessment and plan. Objective - Vital Signs Vital signs: Vital Signs Temp 99.4 F 06/04/18 12:05 Pulse 82 06/04/18 12:05 Resp 18 06/04/18 12:05 BP 140/65 06/04/18 12:05 Pulse Ox 98 06/04/18 12:05 Intake & Output 06/03/18 06/04/18 06/04/18 18:59 06:59 18:59 Intake Total 480 800 480 Output Total 1110 3000 Balance -630 -2200 480 Intake: Intake, IV Titration 800 Amount Sodium Chloride 0.9% 1, 800 000 ml @ 0 mls/hr IV .[facility] Rx#:[id number] Oral 480 480 Output: Drainage 10 Left Groin 10 Urine 1100 3000 Other: Voiding Method Indwelling Catheter # Voids 2 - Exam PHYSICAL EXAMINATION: GENERAL: The patient is alert and oriented x3, not in any acute distress. Well developed, well nourished. HEENT: Pupils are round and equally reacting to light. EOMI. No scleral icterus. No conjunctival pallor. Normocephalic, atraumatic. No pharyngeal erythema. No thyromegaly. CARDIOVASCULAR: S1 and S2 present. No murmurs, rubs, or gallops. PULMONARY: Chest is clear to auscultation, no wheezing or crackles. ABDOMEN: Soft, nontender, nondistended, normoactive bowel sounds. No palpable organomegaly. MUSCULOSKELETAL: No joint swelling or deformity. EXTREMITIES: No cyanosis, clubbing, or pedal edema. Left groin swelling and pseudoaneurysm NEUROLOGICAL: Gross neurological examination did not reveal any focal deficits. SKIN: No rashes. - Labs CBC & Chem 7: 06/04/18 06:08 06/04/18 06:08 Labs: Abnormal Lab Results - Last 24 Hours (Table) 06/02/18 06/04/18 06/04/18 Range/Units 12:00 06:08 06:08 WBC 11.0 H (3.8-10.6) k/uL RBC 2.99 L (3.80-5.40) m/uL Hgb 8.5 L (11.4-16.0) gm/dL Hct 25.3 L (34.0-46.0) % Glucose 113 H (74-99) mg/dL Calcium 8.3 L (8.4-10.2) mg/dL Crossmatch See Detail Assessment and Plan Plan: -Acute non-ST elevation myocardial infarction status post angioplasty as mentioned above, patient had FFR as today which is complicated by pseudoaneurysm. Although FFR did not show any evidence of hemodynamically significant stenosis in her LAD -Post surgical complication, pseudoaneurysm, patient underwent repair of the pseudoaneurysm will be monitored pain will be appropriately treated. -Hypothyroidism -Hypertension -Hyperlipidemia Plan is to continue with present medications cardiac catheterization and FFR tomorrow depending on the FFR results patient management at undergo stenting of LAD
[2018-06-04] MEDS: LEVOTHYROXINE 75 MCG TAB PO SCH (20:15)
[2018-06-04] MEDS: BISOPROLOL-HCTZ 10-6.25 MG 1 EACH TAB PO SCH (20:15)
[2018-06-04] MEDS: ATORVASTATIN 80 MG TAB PO SCH (21:10)
[2018-06-05] MEDS: HYDROcodone/APAP 5-325MG 1 EACH TAB PO PRN ×2 (00:03→04:51)
[2018-06-05] MEDS: PANTOPRAZOLE 40 MG TABLET PO SCH (06:22)
[2018-06-05] MEDS: TICAGRELOR 90 MG TAB PO SCH (08:15)
[2018-06-05] MEDS: POLYETHYLENE GLYCOL 3350 17 GM POWD.PACK PO SCH (08:15)
[2018-06-05] MEDS: ASPIRIN 81 MG PO SCH (08:15)
[2018-06-05 08:35] VITALS: RESP 17; TEMP 98
[2018-06-05] MEDS ORDERED: ONDANSETRON 4 MG/2 ML VIAL IVP PRN (09:45)
--- NOTE | 2018-06-05 11:26 | P.DS ---
Providers Date of admission: 05/30/18 15:36 Attending physician: Myra Lazcano Consults: 05/30/18 15:35 Consult Physician Urgent Consulting Provider: Rafael Thompson Consult Reason/Comments: elevTrop Do you want consulting provider notified?: Yes 05/30/18 18:34 Consult Physician Routine Consulting Provider: [facility] Consult Reason/Comments: Post Interventional patient Do you want consulting provider notified?: Already Contacted 06/02/18 09:49 Consult Physician Stat Consulting Provider: Kwame Hall Consult Reason/Comments: psuedoanuersym left groin Do you want consulting provider notified?: Yes 06/03/18 16:56 Consult Physician Stat Consulting Provider: Jovanna Bhatt Consult Reason/Comments: Left heel wound/ history of debrigement Do you want consulting provider notified?: Yes Primary care physician: Rosendo Forrest [facility] Course: 67-year-old pleasant female was admitted secondary to non-ST elevation myocardial infarction patient underwent stenting of obtuse marginal branch patient has totally occluded RCA with collaterals and 60-70% stenosis of LAD for which patient will undergo FFR tomorrow. Patient is chest pain-free at this time. 06/01/2018 No overnight events patient denied any chest pain patient in for cardiac catheterization today 06/02/2018 Patient is status post repeat cardiac catheterization does not appear to have any hemodynamically significant stenosis in left anterior descending. Unfortunately patient ended up having a pseudoaneurysm because of which I'm consulted and vascular surgery complaining of pain in the groin area and surgical site area. 06/03/2018 Patient underwent surgical repair pseudoaneurysm in the left groin area. Patient is still company of severe pain in that area. 06/04/2018 Patient is feeling better than yesterday muscle surgeries recommending monitoring one more night. Patient is otherwise clinically doing well will improve her mobility today possibly of discharge tomorrow PHYSICAL EXAMINATION: GENERAL: The patient is alert and oriented x3, not in any acute distress. Well developed, well nourished. HEENT: Pupils are round and equally reacting to light. EOMI. No scleral icterus. No conjunctival pallor. Normocephalic, atraumatic. No pharyngeal erythema. No thyromegaly. CARDIOVASCULAR: S1 and S2 present. No murmurs, rubs, or gallops. PULMONARY: Chest is clear to auscultation, no wheezing or crackles. ABDOMEN: Soft, nontender, nondistended, normoactive bowel sounds. No palpable organomegaly. MUSCULOSKELETAL: No joint swelling or deformity. EXTREMITIES: No cyanosis, clubbing, or pedal edema. NEUROLOGICAL: Gross neurological examination did not reveal any focal deficits. SKIN: No rashes. Assessment and Plan Plan: -Acute non-ST elevation myocardial infarction status post angioplasty as mentioned above, patient had FFR as today which is complicated by pseudoaneurysm. Although FFR did not show any evidence of hemodynamically significant stenosis in her LAD -Post surgical complication, pseudoaneurysm, patient underwent repair of the pseudoaneurysm -Hypertension -Hyperlipidemia Patient Condition at Discharge: Serious Plan - Discharge Summary Discharge Rx Participant: No New Discharge Prescriptions: New Atorvastatin [Lipitor] 80 mg PO HS #60 tab Metoprolol Tartrate [Lopressor] 50 mg PO BID #60 tab Sennosides [Senokot] 8.6 mg PO DAILY PRN #30 tab PRN Reason: Constipation Ticagrelor [Brilinta] 90 mg PO BID #30 tab Continue Levothyroxine Sodium [Synthroid] 75 mcg PO HS Phenylephrine/Dm/Acetaminop/GG [Vicks Dayquil Severe Cold-Flu] 30 ml PO Q12H PRN PRN Reason: Cold Symptoms HYDROcodone/APAP 10-325MG [[place] 10-325] 0.5 tab PO DAILY PRN PRN Reason: Pain Esomeprazole Magnesium [NexIUM] 40 mg PO HS Discontinued Atorvastatin [Lipitor] 20 mg PO HS Bisoprolol-Hctz 10-6.25 mg [Ziac 10-6.25] 1 tab PO HS Discharge Medication List Levothyroxine Sodium [Synthroid] 75 mcg PO HS 08/01/14 [History] Esomeprazole Magnesium [NexIUM] 40 mg PO HS 05/30/18 [History] HYDROcodone/APAP 10-325MG [[place] 10-325] 0.5 tab PO DAILY PRN 05/30/18 [History] Phenylephrine/Dm/Acetaminop/GG [Vicks Dayquil Severe Cold-Flu] 30 ml PO Q12H PRN 05/30/18 [History] Atorvastatin [Lipitor] 80 mg PO HS #60 tab 06/05/18 [Rx] Metoprolol Tartrate [Lopressor] 50 mg PO BID #60 tab 06/05/18 [Rx] Sennosides [Senokot] 8.6 mg PO DAILY PRN #30 tab 06/05/18 [Rx] Ticagrelor [Brilinta] 90 mg PO BID #30 tab 06/05/18 [Rx] Follow up Appointment(s)/Referral(s): Rosendo Forrest MD [Primary Care Provider] - 06/06/18 11:20 am (Wednesday) Rafael Thompson MD [STAFF PHYSICIAN] - 1 Week (Spoke to Lucie. Office will call with appointment time) Patient Instructions/Handouts: *Surgery [facility] - After Heart Catheterization - Calender Roll Operator Instructions, Left Heart Catheterization (DC) Activity/Diet/Wound Care/Special Instructions: home Brillinta copay is $368/mo-free coupon applied, pts copay will be $40/mo after deductible Discharge Disposition: HOME SELF-CARE
[2018-06-05 12:01] LABS: HCT 23.3 % (34.0-46.0); HGB 7.8 gm/dL (11.4-16.0); Hypochromasia Slight; MCH 28.9 pg (25.0-35.0); MCHC 33.5 g/dL (31.0-37.0); MCV 86.3 fL (80.0-100.0); Mean Platelet Volume 7.7; Platelet Count 168 k/uL (150-450); RDW 14.6 % (11.5-15.5)
--- NOTE | 2018-06-05 12:07 | P.PN ---
Subjective This is a pleasant 67-year-old female s/p cardiac catheterization and subsequent hematoma. She is seen and examined laying flat in bed with daughter at the bedside. She states she has chronic nausea and has a poor appetite this morning. She denies chest pain, shortness of breath, dizziness or palpitations. Her groins feel soft and non-tender. Blood pressure 19/56 heart rate 83 afebrile maintaining oxygen saturation on room air. Laboratory data reviewed, hemoglobin 7.8, platelets 168. GENERAL: Well-appearing, well-nourished and in no acute distress. NECK: Supple without JVD or thyromegaly. LUNGS: Breath sounds clear to auscultation bilaterally. Respiration equal and unlabored. No wheezes, rales or rhonchi. HEART: Regular rate and rhythm without murmurs, rubs or gallops. S1 and S2 heard. EXTREMITIES: Normal range of motion, no edema. No clubbing or cyanosis. Peripheral pulses intact. Left groin is ecchymotic, mildly tender over the site of presenting however soft with no evidence of bleeding. Right groin soft, nontender no hematoma. Right radial site clean, dry and intact with no hematoma and strong pulse. ASSESSMENT Non ST-elevated myocardial infarction Dyslipidemia Hypertension Left groin pseudoaneurysm PLAN Hemodynamically stable from a cardiac perspective. Will given zofran for nausea and then recommend she attempts to eat lunch before being discharged home. Decrease lisinopril to 2.5 mg daily. Follow-up with Dr. Thompson upon discharge. Nurse Practitioner note has been reviewed, I agree with a documented findings and plan of care. Patient was seen and examined. Objective - Vital Signs Vital signs: Vital Signs Temp 98 F 06/05/18 08:15 Pulse 83 06/05/18 08:15 Resp 17 06/05/18 08:15 BP 98/56 06/05/18 08:15 Pulse Ox 100 06/05/18 08:15 Intake & Output 06/04/18 06/05/18 06/05/18 18:59 06:59 18:59 Intake Total 480 Output Total 1600 Balance 480 -1600 Weight 83.1 kg Intake: Oral 480 Output: Urine 1600 Other: Voiding Method Toilet # Voids 2 1 3 - Labs CBC & Chem 7: 06/05/18 06:39 06/04/18 06:08 Labs: Abnormal Lab Results - Last 24 Hours (Table) 06/05/18 Range/Units 06:39 RBC 2.70 L (3.80-5.40) m/uL Hgb 7.8 L (11.4-16.0) gm/dL Hct 23.3 L (34.0-46.0) %
[2018-06-05 12:24] VITALS: BP 104/61; PULSE 81
[2018-06-06] MEDS ORDERED: LISINOPRIL 2.5 MG TAB PO SCH (09:00)
--- NOTE | 2018-06-07 13:02 | CDI ---
Documentation Clarification Form Date: 06/07/2018 12:59:00 PM From: Nguyen Andrea Azalia Schilling, Farm Appraiser Hours-8:30 am & 5 pm MAmparo Admit Date: 05/30/2018 3:36:00 PM Patient Name: Fabiana Muhammad Visit Number: [id number] Discharge Date: 06/05/2018 1:45:00 PM ATTENTION: The Clinical Documentation Specialists (CDI) and [facility] Coding Staff appreciate your assistance in clarifying documentation. Please respond to the clarification below the line at the bottom and electronically sign. The CDI & [facility] Coding staff will review the response and follow-up if needed. Please note: Queries are made part of the Legal Health Record. If you have any questions, please contact the author of this message via ITS. Dr. Jorge Guadarrama A diagnosis of anemia lacks specificity to accurately reflect your patients severity of condition and clarification is needed. History/Risk Factors: s/p HC, FFR, PTCA & Pseudoaneurysm Clinical indicators: Hemoglobin: 10.0, 9.4, 9.3, 8.3, 8.5, 7.8 Hematocrit: 30.6, 28.8, 28.3, 26.0, 25.3, 23.3 Treatment: 1 unit of PRBCs transfused, IV fluids, monitoring labs In order to capture the severity of condition, please clarify the type of anemia and etiology if known: Acute blood loss anemia Acute on chronic blood loss anemia Chronic blood loss anemia Iron deficiency anemia Unable to determine Other, please specify acute loss existing preoperatively MTDD
--- NOTE | 2018-06-08 16:08 | P.OP ---
Date of Procedure: 06/02/18 Preoperative Diagnosis: Left femoral pseudoaneurysm. Postoperative Diagnosis: Same. Procedure(s) Performed: Repair of left femoral pseudoaneurysm. Implants: None. Anesthesia: GETA Surgeon: Jorge Guadarrama Estimated Blood Loss (ml): 600 Pathology: none sent Condition: stable Disposition: PACU Indications for Procedure: Left femoral pseudoaneurysm Operative Findings: Left femoral pseudoaneurysm Description of Procedure: Patient is a 67-year-old female who is status post cardiac catheterization via left femoral approach performed 06/01/2018. Post procedure/earlier today she is noted to have swelling in the left inguinal area. The patient is on anticoagulants from a cardiac can need. Duplex imaging of the left femoral artery demonstrated a large partially thrombosed pseudoaneurysm with active flow into the pseudoaneurysm sac. Patient was noted to have a drop in her hemoglobin and because of the medical findings of pseudoaneurysm and decrease in hemoglobin and hematocrit in the light of the continued need for anticoagulation from a cardiac standpoint patient is offered operative repair. Description of procedure and findings: Patient was brought to the operating room and placed in the supine position and was administered general endotracheal anesthesia delivered by the department anesthesiology. Patient received 2 g of Ancef in the perioperative phase for prophylactic antibiotic therapy. Gonzalez catheter was placed to gravity drainage. Left inguinal area was sterilely prepped and draped in usual manner. A skin incision overlying the femoral artery was made carried down through the subcu change tissues. Hemostasis was achieved using electrocautery. The incision was deepened down to the level of the femoral sheath. The sheath was opened exposing the femoral artery. The proximal portion of the femoral artery was identified dissected free of investing tissues and encircled with Vesseloops. The superficial femoral artery was also likewise isolated and controlled with Vesseloops. She received 5000 units of heparin intravenously and the Vesseloops were drawn closed. Active bleeding via the profundus femoris was noted. The profundus was then isolated and clamped with a vascular clamp. The point of bleeding was noted to be at the origin of the profundus femoris artery and this was controlled with 5-0 Prolene suture. Once this was performed the clamp surrounding the profundus was removed and flow was allowed to the profundus via the common femoral artery after releasing of the vessel loop. Excellent pulsatile flow within the profundus was noted. The Vesseloops surrounding the origin of the superficial femoral artery was released allowing blood flow distally. The wound was copiously irrigated with antibiotic containing solution. Hemostasis appeared adequate. There is a large intramuscular hematoma in the anterior muscle of the thigh and the hematoma was evacuated as much as possible. A drain was placed within this hematoma cavity and brought out through a separate stab wound incision. The wound was once again irrigated and inspected for hemostasis. Hemostasis was judged be adequate. Deep tissues were closed in multiple layers with 20 and 3-0 Vicryl. Dermis was reapproximated utilizing a running intradermal suture of 4-0 Vicryl. Steri-Strips were applied. Pressure dressing was then placed over the wound after the drain was secured to the skin with nylon suture. Patient tolerated procedure well. Palpable posterior tibial pulse was noted at the completion of the procedure as was present preoperatively. She was taken the recovery area in satisfactory and stable condition.
== END 2018-06-05 13:45 | disposition home or self-care (01) | DRG 247 ==
LOC: EC 12:54 → 3SCARD 15:36
PROVIDERS: ADMIT Hospitalist; ATTEND Hospitalist
PROC: B2111ZZ Fluoroscopy of Multiple Coronary Arteries using Low Osmolar Contrast (ICD-10-PCS; 2018-05-30)
PROC: 027034Z Dilation of Coronary Artery, One Artery with Drug-eluting Intraluminal Device, Percutaneous Approach (ICD-10-PCS; principal; 2018-05-30 16:30)
PROC: 4A023N7 Measurement of Cardiac Sampling and Pressure, Left Heart, Percutaneous Approach (ICD-10-PCS; 2018-05-30 16:30)
PROC: 4A033BC Measurement of Arterial Pressure, Coronary, Percutaneous Approach (ICD-10-PCS; 2018-06-01)
PROC: B2151ZZ Fluoroscopy of Left Heart using Low Osmolar Contrast (ICD-10-PCS; 2018-06-01)
PROC: 30233N1 Transfusion of Nonautologous Red Blood Cells into Peripheral Vein, Percutaneous Approach (ICD-10-PCS; 2018-06-02)
PROC: 04QL0ZZ Repair Left Femoral Artery, Open Approach (ICD-10-PCS; 2018-06-02)
DX: I21.4 Non-ST elevation (NSTEMI) myocardial infarction (principal); I97.89 Other postprocedural complications and disorders of the circulatory system, not elsewhere classified; D62 Acute posthemorrhagic anemia; I11.9 Hypertensive heart disease without heart failure; D64.9 Anemia, unspecified; I72.4 Aneurysm of artery of lower extremity; I25.10 Atherosclerotic heart disease of native coronary artery without angina pectoris; E03.9 Hypothyroidism, unspecified; E87.6 Hypokalemia; E78.5 Hyperlipidemia, unspecified; K21.9 Gastro-esophageal reflux disease without esophagitis; M19.90 Unspecified osteoarthritis, unspecified site; I25.2 Old myocardial infarction; K59.09 Other constipation; Z79.890 Hormone replacement therapy; Z79.899 Other long term (current) drug therapy; Z90.49 Acquired absence of other specified parts of digestive tract; Z98.51 Tubal ligation status; Z87.891 Personal history of nicotine dependence; Z96.652 Presence of left artificial knee joint; Z86.73 Personal history of transient ischemic attack (TIA), and cerebral infarction without residual deficits; Z82.49 Family history of ischemic heart disease and other diseases of the circulatory system; Y84.0 Cardiac catheterization as the cause of abnormal reaction of the patient, or of later complication, without mention of misadventure at the time of the procedure; Y92.230 Patient room in hospital as the place of occurrence of the external cause
CPT/HCPCS: 36415; 71046; 80048; 80053; 80061; 81003; 83690; 83735; 83880; 84484; 85025; 85027; 85049; 85347; 85610; 85730; 86850; 86900; 86901; 86920; 93005; 93306; 93454; 93458; 93571; 93975; 94760; 96374; 99291; C1874